=== PATIENT | male | born 1960 | race Caucasian/White ===

== ENCOUNTER 2019-07-30 04:53 | Inpatient (IN) ==
[2019-07-24 13:53] LABS: Appearance,Urine HAZY; Bilirubin,Urine NEG (NEG); Color,Urine AMBER; Culture Indicated,Urine NO; Glucose,Urine (UA) NEGATIVE (NEG); Ketones,Urine NEG (NEG); Leukocyte Esterase,Urine NEG /uL (NEG); Nitrate,Urine NEG (NEG); Protein,Urine NEG (NEG); Specific Gravity,Urine 1.019 (1.000-1.035); Urine Blood NEG mg/dL (<0.03); Urobilinogen,Urine NEG (NEG)
[2019-07-24 14:10] LABS: Estimated Average Glucose(eAG) 126 mg/dL
[2019-07-30] MEDS ORDERED: IPRATROPIUM/ALBUTEROL 3 ML AMPUL.NEB NEB PRN ×2 (05:00→08:56)
[2019-07-30] MEDS ORDERED: SCOPOLAMINE 1 PATCH PATCH TOPICAL PRN (05:00)
[2019-07-30] MEDS ORDERED: PREGABALIN 75 MG CAPSULE PO SCH (06:00)
[2019-07-30] MEDS ORDERED: oxyCODONE 10 MG TAB.ER.12H PO SCH (06:00)
[2019-07-30] MEDS ORDERED: ceFAZolin 2 GM in DEXTROSE 5% IN WATER 50 ML IV SCH (06:00)
[2019-07-30] MEDS ORDERED: CELECOXIB 200 MG CAPSULE PO SCH (06:00)
[2019-07-30] MEDS ORDERED: SUGAMMADEX SODIUM 200 MG/2 ML VIAL IV ONE (07:35)
[2019-07-30] MEDS ORDERED: KETAMINE 100 MG/ML ML IV ONE (07:35)
[2019-07-30] MEDS ORDERED: ROCURONIUM 10 MG/ML ML IV ONE (07:35)
[2019-07-30] MEDS ORDERED: DEXAMETHASONE 10 MG/ML VIAL IV ONE (07:35)
[2019-07-30] MEDS ORDERED: TRANEXAMIC ACID 1,000 MG/10 ML VIAL IV ONE ×2 (07:35→09:07)
[2019-07-30] MEDS ORDERED: MIDAZOLAM 2 MG/2 ML VIAL IV ONE (07:35)
[2019-07-30] MEDS ORDERED: PROPOFOL 200 MG/20 ML VIAL IV ONE (07:35)
[2019-07-30] MEDS ORDERED: LIDOCAINE HCL/PF 100 MG/5 ML SYRINGE IV ONE (07:35)
[2019-07-30] MEDS ORDERED: GLYCOPYRROLATE 0.2 MG/ML VIAL IV ONE (07:35)
[2019-07-30] MEDS ORDERED: ONDANSETRON 4 MG/2 ML VIAL IV ONE (07:35)
[2019-07-30] MEDS ORDERED: fentaNYL 100 MCG/2 ML VIAL IV PRN (08:56)
[2019-07-30] MEDS ORDERED: METHOCARBAMOL 1,000 MG/10 ML VIAL IV PRN (08:56)
[2019-07-30] MEDS ORDERED: ONDANSETRON 4 MG/2 ML VIAL IV PRN ×2 (08:56→09:07)
[2019-07-30] MEDS ORDERED: ACETAMINOPHEN 1,000 MG/100 ML BOTTLE IV ONE (08:56)
[2019-07-30] MEDS ORDERED: LACTATED RINGERS 1,000 ML IV SCH (09:00)
[2019-07-30] MEDS ORDERED: HYDROmorphone 2 MG/ML VIAL IV PRN (09:07)
[2019-07-30] MEDS ORDERED: FLEETS ADULT ENEMA PR PRN (09:07)
[2019-07-30] MEDS ORDERED: BISACODYL 10 MG SUPP.RECT PR PRN (09:07)
[2019-07-30] MEDS ORDERED: POLYETHYLENE GLYCOL 3350 17 GM PACKET PO PRN (09:07)
[2019-07-30] MEDS ORDERED: MAGNESIUM HYDROXIDE 30 ML ORAL.SUSP PO PRN (09:07)
[2019-07-30] MEDS ORDERED: BENZOCAINE/MENTHOL 1 LOZENGE PO PRN (09:07)
--- NOTE | 2019-07-30 09:07 | Brief Operative Note ---
Date of procedure: 07/30/19 Pre-op diagnosis: Left hip severe DJD Post-op diagnosis: same Procedure: Right anterior total hip arthroplasty Grafts/Implants: Yes (Depuy Actis 7 std stem, +1.5 36mm delta head, 54 cup, neutral altrx liner) Anesthesia: spinal, GLMA Findings: severe arthritis Complications: none Surgeon: Jeremiah Degroot Bone Char Kiln Tender: Som Manning Estimated blood loss (cc): 200 Specimens Removed/Pathology: none sent Condition: stable Disposition: PACU
[2019-07-30] MEDS ORDERED: traZODone HCL 100 MG TABLET PO PRN (09:11)
[2019-07-30] MEDS ORDERED: ACYCLOVIR 400 MG TABLET PO PRN (09:11)
--- NOTE | 2019-07-30 09:46 | XRay Report ---
CLINICAL INFORMATION: Left total hip arthroplasty TECHNIQUE: Intraoperative fluoroscopy and spot films. 0.4 minutes fluoroscopy utilized COMPARISON: None. FINDINGS: Intraoperative fluoroscopy was utilized. Spot films demonstrate prosthetic left hip in anatomic alignment IMPRESSION: Intraoperative fluoroscopy and spot films used during left total hip arthroplasty Interpreted and Authenticated by: Siddhartha Bojorquez 07/30/19
--- NOTE | 2019-07-30 09:59 | Operative Note ---
DATE OF OPERATION: 07/30/2019 PREOPERATIVE DIAGNOSIS: Left hip severe osteoarthritis. POSTOPERATIVE DIAGNOSIS: Left hip severe osteoarthritis. PROCEDURE PERFORMED: Left anterior total hip arthroplasty placing a DePuy Actis size 7 standard offset femoral stem; a +1.5, 36 mm delta ceramic head ball; a 54 three-hole [place] cup with a neutral Altrx liner. SURGEON: Jeremiah Degroot M.D. WELT EDGE ROUNDER: Horace Manning PA-C. The PA's assistance was required for the safe and efficient completion of the entire case. This provider's expertise and technical skill were required throughout the case. The PA assisted with preoperative coordination, intraoperative retraction, wound closure, dressing and splint application, as well as postoperative documentation and care coordination. ANESTHESIA: Spinal plus general. DRAINS: None. SPECIMENS: Femoral head which was discarded. BLOOD LOSS: 200 mL. COMPLICATIONS: None. POSTOPERATIVE CONDITION: Stable. INDICATIONS FOR SURGERY: This is a 59-year-old male who has had longstanding, progressive worsening left hip pain. Radiographs showed severe [id number] osteoarthritis with large osteophyte formation. FINDINGS AT SURGERY: As above. Post implantation showed satisfactory component positioning with acceptable leg lengthening. PROCEDURE IN DETAIL: The patient had been seen preoperatively and informed consent had been obtained after discussion of risks and benefits of surgery. Risks including, but not limited to, bleeding, possibly requiring transfusion; infection, possibly requiring implant removal and prolonged IV antibiotics; injury to nerves, blood vessels, and other surrounding structures; anesthetic risks; incomplete or no resolution of symptoms; leg length discrepancy; dislocation; fracture; DVT and pulmonary embolus risks; and the possibility of needing further revision joint surgery. He understood and wished to proceed. Correct operative site was marked and patient received spinal anesthesia. He was then taken to the operating room and LMA general given. The patient was carefully positioned on the fracture table and then the left hip and groin were carefully prepped and draped in normal sterile fashion. Time out was performed verifying patient name, operative site, and plan. Ioban was used to cover all skin surfaces and a standard anterior approach incision was made with a scalpel through skin and subcutaneous tissue. Hemostasis was obtained with Bovie cautery. We continued blunt dissection down onto the tensor fascia and then undermined circumferentially. Irrisept was irrigated and a ring retractor was placed. Tensor fascia was incised in line with the muscle fibers and then careful blunt dissection was taken medial to the muscle belly. Blunt cobra retractors were placed on the superior and inferior neck and then circumflex vessels were coagulated and cut and vastus fascia was split distally. An anterior capsulectomy was performed and capsule releases taken out towards the greater and lesser trochanters. Corkscrew was placed in the femoral head. Prior to this, we did take x-rays for [facility] registration. We then under fluoroscopy using an osteotome identified our neck cut trajectory and then the oscillating tip saw was used to make our osteotomy. The femoral head was removed. The acetabulum was exposed. There was some large overhanging osteophyte which was removed with a rongeur. We then removed labrum, what remained, circumferentially and then soft tissue was removed from the floor of the acetabulum. We then irrigated with Irrisept and then a reamer was used, initially reaming directly medial to the teardrop. We then increased our reamer size and angle until a 53 got some rim ream. We trialed the 53 and did get some press-fit, so we opened a 54 three-hole [place] cup. We irrigated with Irrisept again, after a minute pulse lavaged copiously with saline. The cup was impacted with the [id number] and using JointPoint our positioning appeared to be about 39 degrees of inclination and 30 degrees of anteversion. It did not appear that lessening the anteversion was an option due to lack of coverage anteriorly if we were to do so. We went ahead and removed the impactor. A center hole cover was placed. Osteotome was used to remove anterior inferior osteophyte and then a rongeur was used to remove the fragments. We then opened a 36 neutral Altrx liner. This was carefully aligned and impacted. Tabs were carefully verified to be fully seated. Traction was removed from the leg. It was externally rotated it. We released capsule around the medial neck and posterior and then the leg was extended and adducted. Bovie was used to release capsule out towards the greater trochanter and once we had adequate exposure of the proximal femur, a box osteotome was used to gain canal entry. An awl was used to identify canal trajectory and then a rongeur and rasp were used to lateralize. We sequentially broached up to a size 6. This seated a little below our neck cut. We calcar planed down onto this. A +1.5 standard neck and head were placed. The hip was then reduced. There was some increased tension. X-ray was brought in and using JointPoint it appeared our stem was in a little bit of valgus, and we also appeared to be slightly undersized. The leg lengthening was about 9 mm. Our preoperative templating had him at about 6 mm short. I went ahead and redislocated due to the stem appearing undersized and being in valgus. I used the 6 broach and started using the [id number] to make this a little more varus. This then allowed the stem to seat lower, so I went ahead and went up to a size 7. The 7 I was able to seat about a millimeter below the neck cut, so I re-calcar planed. We opened a 7 standard stem. The femoral canal was irrigated with Irrisept, after a minute pulse lavaged with saline. We then impacted the stem which seated down on our neck cut easily. A +1.5, 36 mm delta head ball was opened. The stem was carefully cleaned and dried and the head ball briskly impacted with the [id number]. We then reduced the hip with similar tension as before. Final fluoro images were taken and saved. JointPoint had us at limb lengthening of about 10 mm. Again, the net limb lengthening compared to the nonoperative side would have placed us at about 4 mm, which we felt was acceptable. We then irrigated the joint with Irrisept, after a minute pulse lavaged with saline. Tensor fascia was closed with two running #1 Vicryl stitches. Ring retractor was removed. Irrisept was irrigated again, after a minute pulse lavaged with saline, and then fat was tacked to fascia with Vicryl. A 2-0 Monocryl was used for subcutaneous and maryan for skin. Xeroform and sterile dressing were applied. The patient was then awakened, extubated, and transferred to recovery in stable condition. MICHELLE:louis Job ID: [id number] Doc ID: [id number] Jeremiah Degroot MD
[2019-07-30] MEDS: MEPERIDINE 25 MG/ML SYRINGE IV PRN ×2 (10:04→10:10)
--- NOTE | 2019-07-30 10:29 | XRay Report ---
CLINICAL INFORMATION: Postsurgical follow-up TECHNIQUE: AP pelvis. AP and lateral left hip COMPARISON: Previous AP pelvis dated 03/08/2016 FINDINGS: Status post left total hip arthroplasty. Normal anatomic alignment demonstrated. No acute fracture. There are skin maryan overlying the left hip. IMPRESSION: Left total hip arthroplasty Interpreted and Authenticated by: Siddhartha Bojorquez 07/30/19
[2019-07-30] MEDS: 0.9 % SODIUM CHLORIDE 1,000 ML IV SCH ×2 (10:37→20:13)
[2019-07-30] MEDS: KETOROLAC 30 MG/ML VIAL IV PRN (13:17)
[2019-07-30] MEDS: oxyCODONE/APAP 5/325MG TABLET PO PRN ×2 (13:52→22:50)
[2019-07-30] MEDS: 0.9 % SODIUM CHLORIDE 10 ML SYRINGE IV SCH ×2 (14:20→20:11)
[2019-07-30] MEDS: ceFAZolin 1 GM VIAL IV SCH ×2 (14:54→22:50)
[2019-07-30] MEDS: ASPIRIN 81 MG TAB.CHEW PO SCH (20:10)
[2019-07-30] MEDS: DOCUSATE SODIUM 100 MG CAPSULE PO SCH (20:10)
[2019-07-30] MEDS ORDERED: SENNOSIDES 1 TABLET PO SCH (21:00)
[2019-07-31] MEDS: oxyCODONE/APAP 5/325MG TABLET PO PRN ×2 (05:14→10:10)
[2019-07-31] MEDS: 0.9 % SODIUM CHLORIDE 10 ML SYRINGE IV SCH ×2 (05:17→05:30)
[2019-07-31] MEDS: 0.9 % SODIUM CHLORIDE 1,000 ML IV SCH (05:47)
[2019-07-31] MEDS: KETOROLAC 30 MG/ML VIAL IV PRN (07:00)
[2019-07-31] MEDS ORDERED: LEVOTHYROXINE 50 MCG TABLET PO SCH (07:30)
--- NOTE | 2019-07-31 07:33 | Discharge Summary ---
Providers - Providers Patient information: Note initiated : 07/31/19 at 7:28 am Service Date, if different from initiated Date: [] Patient: Jason Lewis 59 y/o M admitted on 07/30/19 for Left Total Hip Arthroplasty. Chief Complaint: [] Discharge date: 07/31/19 Hospitalization Hospital Course: Pt was admitted for a L FLORIAN. Pt underwent the procedure on the ayush of admission. Pt was transferred to the floor for IV pain meds, IV abx, and PT. Pt discharged post-op day 1. Will f/u in 2 weeks. Will take ASA for DVT prophylaxis. Discharge diagnosis: L hip OA Exam - Exam Clean and dry: Yes Weight bearing status: as tolerated Ortho Discharge - FLORIAN - Patient Instructions Diet: Regular Diet Activity: activity as tolerated Total Hip Protocol: Follow activity instructions as provided by Physical Therapy. Dressing Care: May shower in 2 days - Follow Up Plan Disposition: Home, Self-Care Prognosis: Good Rehab Potential: Good Overall status at discharge: patient is progressing back to baseline - Orders For Discharge Prescriptions: Aspirin 81 mg PO BID #60 tab.chew Transmission Status: Pending to [facility] #[id number] Hydrocodone/APAP 7.5/325Mg [[place] 7.5-325Mg] 1 - 2 tab PO Q6HP PRN #80 tab PRN Reason: Pain Prescription Printed Pending Studies Resuscitation Status Full Code Diet Consistent Carbohydrate Diet Start SunJul 30 09 Aspirin (Aspirin) 81 mg PO BID [facility] Last Admin: 07/30/19 20:10 Dose: 81 mg Documented by: DEBBY Docusate Sodium (Colace) 100 mg PO BID [facility] [place] Last Admin: 07/30/19 20:10 Dose: 100 mg Documented by: DEBBY Sodium Chloride (Sodium Chloride 0.9%) 1,000 mls @ 100 mls/hr IV .Q10H [facility] [place] Last Infusion: 07/31/19 05:50 Dose: 0 mls/hr Documented by: Admin: 07/31/19 05:47 Dose: Not Given Documented by: Admin: 07/30/19 20:13 Dose: 100 mls/hr Documented by: Infusion: 07/30/19 20:13 Dose: 100 mls/hr Documented by: Admin: 07/30/19 10:37 Dose: 100 mls/hr Documented by: [email or web address] Ketorolac Tromethamine (Toradol) 30 mg IV Q6HP PRN PRN Reason: Pain Stop: 08/01/19 09:10 Last Admin: 07/31/19 07:00 Dose: 30 mg Documented by: [email or web address] Admin: 07/30/19 13:17 Dose: 30 mg Documented by: [email or web address] Levothyroxine Sodium (Synthroid) 50 mcg PO QAMAC [facility] [place] Last Admin: 07/31/19 07:00 Dose: 50 mcg Documented by: [email or web address] Oxycodone/Acetaminophen (Percocet 5-325 Mg) 0 tab PO Q4HP PRN PRN Reason: PAIN LEVEL 3-6 Last Admin: 07/31/19 05:14 Dose: 1 tab Documented by: Admin: 07/30/19 22:50 Dose: 1 tab Documented by: Admin: 07/30/19 13:52 Dose: 1 tab Documented by: [email or web address] Senna (Senokot) 2 tab PO HS [facility] Last Admin: 07/30/19 20:09 Dose: 2 tab Documented by: DEBBY Sodium Chloride (Saline Flush) 10 ml IV Q8 [facility] [place] Last Admin: 07/31/19 05:30 Dose: Not Given Documented by: Admin: 07/30/19 20:11 Dose: Not Given Documented by: Admin: 07/30/19 14:20 Dose: Not Given Documented by: [email or web address] Trazodone HCl (Desyrel) 100 mg PO QHS PRN PRN Reason: Sleep Last Admin: 07/30/19 22:50 Dose: 100 mg Documented by: DEBBY Shift Summary 07/31/19 03:49 Shift Summary by Fam Romero Patient is alert and oriented times four. had left total hip arthroplasty done. dressing to the hip clean, dry and intact. medicated pain with one tab of percocet with good effect. Patient is up with one assist with a walker and gaitbelt. Ambulated in hallway. AV boots on. voiding with good amount. incontinent sometimes. Due to numbness in the pelvic areas. IV to the left forearm infusing normal saline @ 100mls/hr. Ice pack to the left hip. Stable vital signs. Slept most of the night. Pleasant and cooperative. Initialized on 07/31/19 03:49 - END OF NOTE
[2019-07-31] MEDS: DOCUSATE SODIUM 100 MG CAPSULE PO SCH (08:50)
[2019-07-31] MEDS: ASPIRIN 81 MG TAB.CHEW PO SCH (08:50)
[2019-07-31] MEDS ORDERED: buPROPion 150 MG TAB.XL.24H PO SCH (09:00)
[2019-07-31] MEDS ORDERED: HYDROCHLOROTHIAZIDE 25 MG TABLET PO SCH (09:00)
[2019-07-31] MEDS ORDERED: ALLOPURINOL 300 MG TABLET PO SCH (09:00)
[2019-07-31] MEDS ORDERED: BENZOYL PEROX TOPICAL SCH (09:00)
[2019-07-31] MEDS ORDERED: DOXYCYCLINE HYCLATE 100 MG TABLET.ORL PO SCH (09:00)
[2019-07-31] MEDS ORDERED: FLUTICASONE PROPIONATE SPRAY.NAS NS SCH (09:00)
[2019-07-31] MEDS ORDERED: CLINDAMYCIN PHOS TOPICAL SCH (09:00)
== END 2019-07-31 10:45 | disposition home or self-care (01) | DRG 470 ==
LOC: MEDSUR 04:53
PROVIDERS: ADMIT Orthopaedic Surgery; ATTEND Orthopaedic Surgery

== ENCOUNTER 2022-04-07 17:39 | Inpatient (IN) ==
[2022-04-07 18:29] LABS: POC Calcium, Ionized 1.04 (1.16-1.32); POC Potassium 3.4 (3.3-5.1)
[2022-04-07 18:45] LABS: Basophils # (Auto) 0.05 K/mcL (0.00-0.30); Basophils % (Auto) 0.3 % (0.0-2.0); Eosinophils # (Auto) 0.01 K/mcL (0.00-0.70); Eosinophils % (Auto) 0.1 % (0.0-7.0); Hematocrit 41.9 % (40.1-51.0); Hemoglobin 13.9 g/dL (13.7-17.5); Lymphocytes # (Auto) 1.17 K/mcL (1.50-4.80); Lymphocytes % (Auto) 6.8 % (15.5-49.0); Mean Cell Volume 84.1 fL (80.0-100.0); Mean Corpuscular HGB Conc 33.2 g/dL (31.0-36.0); Monocytes # (Auto) 1.49 K/mcL (0.10-0.90); Monocytes % (Auto) 8.6 % (1.0-12.0); Neutrophils % (Auto) 83.7 % (38.0-78.0); Platelet Count 232 K/mcL (140-440); RBC 4.98 M/mcL (4.63-6.08); Red Cell Distribution Width 16.4 % (11.5-14.5); WBC 17.2 K/mcL (4.5-11.0)
--- NOTE | 2022-04-07 18:51 | Emergency Department Note ---
HPI General Chief complaint: Urogenital-Male Stated complaint: urinary retention/air out penis Time Seen by Provider: 04/07/22 17:42 Source: patient and family (Significant other) Mode of arrival: ambulatory Limitations: no limitations History of Present Illness HPI Narrative: Narrative: 62-year-old male presents emergency department complaining of air coming out of his penis. States that 3 days ago he was unable to urinate although he was able to dribble. Feels as though his urine is building up in his bladder. States he has a burnt orange color. States he is seeing chunks come out when he does urinate. Sometimes he has air bubbles come out and sometimes he has a "penis fart". Patient also complains of stomach issues which have been present for really long time. While trying to ascertain what this was the patient described having a wrap surgery on his stomach and then having what sounds like a hiatal hernia surgery. Patient also describes atypical bowel movements. States that he will have no bowel movement for 2 to 3 days and then have a painful bowel movement. Described the stool sometimes being spaghetti like in shape. Also describes it as "sheets". Patient describes his prostate being opened which may represent a TURP by Dr. Erickson 8 years ago. This is unconfirmed. Patient rates the discomfort as a 2 on a 0-to-10 scale. States it waxes and wanes and is worse when he urinates when the pain will go up to an 8. States he has bubbles in the urine which she can hear and see/feel. States no prior similar. States nothing makes it better or worse. States the pain radiates to his back and then up to his chest and into his shoulders then arms and finally hands and fingers. Describes the pain as sharp. Patient also states he has rhinorrhea with his bowel movements. Old chart shows colonoscopy 2018. Related Data Home Medications Medication Instructions Recorded Confirmed lansoprazole 30 mg capsule,delayed 30 mg PO BID cap 05/30/21 04/07/22 release allopurinol 300 mg tablet 300 mg PO QAM 08/26/21 04/07/22 [id number] 200 mcg-lycop 1 tab PO QAM 08/26/21 04/07/22 175 mcg-lutei 250 mcg-herb 178 tablet (Cristofer Multivitamin For Men) Previous Rx's Medication Instructions Recorded CPAP unit and supplies #1 ea 04/01/20 sildenafil 100 mg tablet (Viagra) 100 mg PO DIRECTED #6 tab 04/25/21 bupropion HCl 150 mg 24 hr tablet, 150 mg PO QAM #90 tab 10/24/21 extended release hydrochlorothiazide 25 mg tablet 25 mg PO QAM #90 tab 10/24/21 metformin 500 mg tablet 500 mg PO QAM #90 tab 01/02/22 levothyroxine 50 mcg tablet 50 mcg PO QAM #90 tab 01/23/22 (Synthroid) meloxicam 15 mg tablet (Mobic) 15 mg PO QAM #90 tab 01/23/22 doxycycline hyclate 100 mg tablet 100 mg PO QAM #30 tab 01/31/22 omega-3 acid ethyl esters 1 gram 2 cap PO BID #120 cap 02/20/22 capsule trazodone 100 mg tablet 100 mg PO QHS #30 tab 03/17/22 Allergies Allergy/AdvReac Type Severity Reaction Status Date / Time Nefazodone [NEFAZODONE] AdvReac Severe JOINTS Verified 03/24/22 14:28 FROZE, HEAD SWELLING Varenicline [From Chantix] AdvReac Intermediate Palpitations, Verified 03/24/22 14:28 night sweats Review of Systems ROS ROS Narrative: Narrative: All systems ED: reviewed and negative except as stated. Constitutional: Denies fever Eyes: Denies eye discharge ENT ED: Denies epistaxis Cardiovascular: Denies chest pain Respiratory: Denies shortness of breath Gastrointestinal: Reports abdominal pain Genitourinary: Reports dysuria, hematuria and other (Has gas come out when urin ating and urinates "chunks") Musculoskeletal: Denies back pain Integumentary: Denies rash PFSH Narrative Patient History Narrative: Narrative: Medical/Surgical/Family History All Active Problems (Updated 04/08/22 @ 04:44 by Jonnathan Richmond MD) Fistula of large intestine (Acute) Laceration of right middle finger (Acute) Initial Medicare annual wellness visit (Acute) Diverticulosis (Acute) Leg length discrepancy (Acute) Tubulovillous adenoma of colon (Chronic) GERD (gastroesophageal reflux disease) (Chronic) Atrophy of pancreas (Acute) Constipation (Chronic) Abdominal ascites (Acute) Palpitations (Acute) Encounter for Health Maintenance Examination in Adult (Acute) Acute bronchitis (Acute) Leukoplakia of oral cavity (Acute) History of colonoscopy (Chronic 12/28/17) S/P epidural steroid injection (Chronic 07/11/17) History of parathyroid surgery (Chronic 09/27/15) History of hernia surgery (Chronic) History of arthroscopy of knee (Chronic) History of vasectomy (Chronic) History of laparoscopy (Chronic) History of tonsillectomy (Chronic) History of rotator cuff surgery (Chronic) Leukocytosis (Chronic) Erectile dysfunction (Chronic) Depression (Chronic) IBS (irritable bowel syndrome) (Chronic) Allergic rhinitis (Chronic) Hip pain, right (Chronic) Lower back pain (Chronic) Herpes genitalis (Chronic) Malignant basal cell neoplasm of skin (Chronic) Fatigue (Chronic) Plantar fasciitis (Chronic) Superficial injury of hand without infection (Chronic) Diverticulosis (Chronic) Other diseases of pharynx (Chronic) Arthralgia (Chronic) Myalgia (Chronic) Dyspnea (Chronic) Gout (Chronic) Nodular prostate with urinary obstruction (Chronic) Hypercalcemia (Chronic) Back pain, chronic (Chronic) Chronic left hip pain (Chronic) Neoplasm of uncertain behavior (Chronic) Sebaceous cyst (Chronic) Wrist pain, right (Chronic) Rotator cuff tear, left (Chronic) Hyperparathyroidism (Chronic) Parathyroid disorder (Chronic) Pain in right shoulder (Chronic) BPH with obstruction/lower urinary tract symptoms (Chronic) DDD (degenerative disc disease), lumbar (Chronic) Trochanteric bursitis of left hip (Chronic) Umbilical hernia (Chronic) Hyperlipidemia (Chronic) Hypothyroidism (Chronic) Diverticulosis of colon (without mention of hemorrhage) (Chronic) Internal hemorrhoids (Chronic) Colonic polyp (Chronic) Hiatal hernia with gastroesophageal reflux (Chronic) Injury of left rotator cuff (Chronic) Sleep apnea, obstructive (Chronic) Polycythemia, secondary (Chronic) Hypertension (Chronic) Peripheral edema (Chronic) Medical History (Updated 04/08/22 @ 04:44 by Jonnathan Richmond MD) Allergic rhinitis Arthralgia Back pain, chronic BPH with obstruction/lower urinary tract symptoms Chronic left hip pain Colonic polyp Constipation DDD (degenerative disc disease), lumbar with myelopathy Depression Diverticulosis Diverticulosis of colon (without mention of hemorrhage) Dyspnea Erectile dysfunction Fatigue GERD (gastroesophageal reflux disease) Gout Herpes genitalis Hiatal hernia with gastroesophageal reflux Hip pain, right Hypercalcemia Hyperlipidemia Hyperparathyroidism Hypertension Hypothyroidism IBS (irritable bowel syndrome) Injury of left rotator cuff Internal hemorrhoids Leukocytosis Lower back pain Malignant basal cell neoplasm of skin Myalgia Neoplasm of uncertain behavior of skin Nodular prostate with urinary obstruction Other diseases of pharynx Pain in right shoulder Parathyroid disorder Peripheral edema Plantar fasciitis Polycythemia, secondary Rotator cuff tear, left Sebaceous cyst Sleep apnea, obstructive Superficial injury of hand without infection Trochanteric bursitis of left hip Tubulovillous adenoma of colon Umbilical hernia Wrist pain, right Surgical History History of arthroscopy of knee History of colonoscopy (12/28/17) History of hernia surgery 07/11/17 & 03/18/18 History of laparoscopy History of parathyroid surgery (09/27/15) left central neck exploration with removal of left inferior parathyroid adenoma, Dr Cody History of rotator cuff surgery left 03/19, rt 10/22 History of tonsillectomy History of vasectomy S/P epidural steroid injection (07/11/17) Dr Woods Family History Other No pertinent family history Social History Smoking Status: Former smoker Alcohol Intake Frequency: holiday/special occasion only Substance Use: does not use Exam Narrative Narrative: Narrative: General Limitations: no limitations General appearance: Present alert, anxious and in distress (Mild) Head Head: Present atraumatic, normocephalic and other (Full head of hair) Eye Eye: Present normal appearance Neck Neck: Present normal inspection and trachea midline Chest Chest: Absent tenderness Respiratory Respiratory: Present normal lung sounds bilaterally; Absent respiratory distress Cardiovascular Cardiovascular: Present normal rhythm and tachycardia Adbominal Abdominal: Present soft and tenderness (Left upper quadrant primarily. minimal suprapubic); Absent guarding or rebound Extremities Extremities: Present normal inspection and other (Well-healed finger partial amputation) Back Back: Present normal inspection; Absent tenderness Neurological Neurological: Present alert and oriented X3 Psychiatric Psychiatric: Present normal affect and normal mood Skin Skin: Present warm (WNL) and dry Course Consultations Consultation #1: Discussed with Dr. Cj Ramirez the general surgeon. He requested the patient be admitted to the hospital. He placed on Flagyl 500 mg every 6 and meropenem. Requested Pyridium. Requested Lynch catheter. Requested clear fluids in addition to IV fluids. He will see the patient in the hospital. Time: 21:24 Vital Signs Vital signs: Vital Signs Temperature 98.4 F 04/07/22 17:53 Pulse Rate 122 H 04/07/22 17:53 Respiratory Rate 16 04/07/22 17:53 Blood Pressure 122/82 04/07/22 17:53 Pulse Oximetry (%) 94 04/07/22 17:53 Temperature 99.5 F H 04/08/22 04:00 Pulse Rate 100 H 04/08/22 04:00 Respiratory Rate 16 04/08/22 04:00 Blood Pressure 117/76 04/08/22 04:00 Pulse Oximetry (%) 94 04/08/22 04:00 [facility] MDM Narrative Medical decision making narrative: Narrative: 62-year-old male comes planing of urinating with air coming out at the same time. Differential diagnosis includes enterovesicular fistula, gas-forming organism in the bladder, status post instrumentation of the bladder, other. Will obtain abdominal pelvic CT scan with IV contrast and rectal contrast (per suggestion of radiologist Dr. Kinsey) to evaluate for enterovesicular fistula. Patient has elevated white count and tachycardia along with likely urinary tract infection (leukocytes in urine dip) so meets sepsis criteria. Patient will receive Zosyn plus Vanco for initial sepsis treatment. Lactic acid level is pending. Blood cultures have been ordered and the patient is being bolused the first liter of normal saline. 1927; I spoke to the daughter [phone]. She is an ICU nurse. I have updated her about her father sepsis and the pending CT scan looking for fistula. 2013: Lactic acid level was normal at 1.4. Patient has sepsis but patient does not have severe sepsis. There is no elevated lactic acid level and there is no new organ dysfunction due to the infection. Patient is not hypotensive. Patient does NOT require IV fluid bolus of 30 mL/kg. CT scan and pelvis interpreted by Dr. 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 There is no signs of an abscess. There is no free air in the abdomen though there is free air in the bladder. I discussed the case with Dr. Cj Ramirez the general surgeon. He requested that I admit the patient to the hospital on his service. Patient should be allowed a clear liquid diet and started on meropenem and Flagyl. Lab Data Result diagrams: 04/07/22 18:15 Labs: Lab Results 04/07/22 04/07/22 04/07/22 Range/Units 18:05 18:15 18:15 WBC 17.2 H (4.5-11.0) K/mcL RBC 4.98 (4.63-6.08) M/mcL Hgb 13.9 (13.7-17.5) g/dL Hct 41.9 (40.1-51.0) % POC Hct (41-55) MCV 84.1 (80.0-100.0) fL MCH 27.9 (26.0-34.0) pg MCHC 33.2 (31.0-36.0) g/dL RDW 16.4 H (11.5-14.5) % Plt Count 232 (140-440) K/mcL MPV 9.0 (7.4-10.4) fL Immature Gran % (Auto) 0.5 (0.0-0.5) % Neut % (Auto) 83.7 H (38.0-78.0) % Lymph % (Auto) 6.8 L (15.5-49.0) % [place] % (Auto) 8.6 (1.0-12.0) % Eos % (Auto) 0.1 (0.0-7.0) % Baso % (Auto) 0.3 (0.0-2.0) % Lymph # (Auto) 1.17 L (1.50-4.80) K/mcL [place] # (Auto) 1.49 H (0.10-0.90) K/mcL Eos # (Auto) 0.01 (0.00-0.70) K/mcL Baso # (Auto) 0.05 (0.00-0.30) K/mcL Immature Gran # 0.09 H (0.00-0.05) K/mcl Absolute Neutrophils 14.52 H (1.80-8.00) K/mcL VBG Lactic Acid (0.5-2.0) mmol/L POC Sodium (133-145) POC Potassium (3.3-5.1) POC Chloride (96-108) POC Total CO2 (22-30) POC BUN (6-20) POC Creatinine (0.6-1.2) POC Glucose (70-105) POC WB Ioniz Calcium (1.16-1.32) Total Bilirubin 0.8 (0.1-1.0) mg/dL Direct Bilirubin 0.2 (<0.3) mg/dL AST 22 (<40) U/L ALT 23 (<40) U/L Alkaline Phosphatase 104 (39-117) U/L Total Protein 7.2 (5.9-8.4) gm/dL Albumin 3.8 (3.2-5.2) gm/dL Globulin 3.4 (2.2-3.7) gm/dL Urine Color Anna Urine Appearance Cloudy A (Clear) Urine pH 6.0 (5.0-9.0) Ur Specific [place] 1.026 (1.000-1.035) Urine Protein 100 A (Negative) mg/dL Urine Glucose (UA) Negative (Negative) mg/dL Urine Ketones 20 A (Negative) mg/dL Urine Occult Blood 0.20 (Negative) mg/dL Urine Nitrate Negative (Negative) Urine Bilirubin Negative (Negative) mg/dL Urine Urobilinogen 4.0 A mg/dL Ur Leukocyte Esterase 250 A (Negative) /uL Urine RBC 115 H (0-3) /hpf Urine WBC > 182 H (0-4) /hpf Ur Squamous Epith Cells 3 (0-4) /hpf Ur Transition Epith Cell 2 (0-2) /hpf Urine Bacteria None (0) /hpf Hyaline Casts 7 H (0-2) /lph Urine Mucus Many A (None) /hpf Ur Culture Indicated? yes 04/07/22 04/07/22 Range/Units 18:24 18:51 WBC (4.5-11.0) K/mcL RBC (4.63-6.08) M/mcL Hgb (13.7-17.5) g/dL Hct (40.1-51.0) % POC Hct 42.0 (41-55) MCV (80.0-100.0) fL MCH (26.0-34.0) pg MCHC (31.0-36.0) g/dL RDW (11.5-14.5) % Plt Count (140-440) K/mcL MPV (7.4-10.4) fL Immature Gran % (Auto) (0.0-0.5) % Neut % (Auto) (38.0-78.0) % Lymph % (Auto) (15.5-49.0) % [place] % (Auto) (1.0-12.0) % Eos % (Auto) (0.0-7.0) % Baso % (Auto) (0.0-2.0) % Lymph # (Auto) (1.50-4.80) K/mcL [place] # (Auto) (0.10-0.90) K/mcL Eos # (Auto) (0.00-0.70) K/mcL Baso # (Auto) (0.00-0.30) K/mcL Immature Gran # (0.00-0.05) K/mcl Absolute Neutrophils (1.80-8.00) K/mcL VBG Lactic Acid 1.4 (0.5-2.0) mmol/L POC Sodium 133 (133-145) POC Potassium 3.4 (3.3-5.1) POC Chloride 95 L (96-108) POC Total CO2 25.0 (22-30) POC BUN 19 (6-20) POC Creatinine 1.0 (0.6-1.2) POC Glucose 106 H (70-105) POC WB Ioniz Calcium 1.04 L (1.16-1.32) Total Bilirubin (0.1-1.0) mg/dL Direct Bilirubin (<0.3) mg/dL AST (<40) U/L ALT (<40) U/L Alkaline Phosphatase (39-117) U/L Total Protein (5.9-8.4) gm/dL Albumin (3.2-5.2) gm/dL Globulin (2.2-3.7) gm/dL Urine Color Urine Appearance (Clear) Urine pH (5.0-9.0) Ur Specific [place] (1.000-1.035) Urine Protein (Negative) mg/dL Urine Glucose (UA) (Negative) mg/dL Urine Ketones (Negative) mg/dL Urine Occult Blood (Negative) mg/dL Urine Nitrate (Negative) Urine Bilirubin (Negative) mg/dL Urine Urobilinogen mg/dL Ur Leukocyte Esterase (Negative) /uL Urine RBC (0-3) /hpf Urine WBC (0-4) /hpf Ur Squamous Epith Cells (0-4) /hpf Ur Transition Epith Cell (0-2) /hpf Urine Bacteria (0) /hpf Hyaline Casts (0-2) /lph Urine Mucus (None) /hpf Ur Culture Indicated? Discharge Plan Patient/Caregiver Discharge Instructions Pt seen by [facility]/PA only: No Clinical Impression: Fistula of large intestine Activity: as instructed Patient Disposition: Xfer As Inpt ([facility]) Condition: Fair Discharge Date/Time: 04/07/22 22:26 Discharge Comment: Stretcher to Rm. [phone]
[2022-04-07] MEDS ORDERED: PIPERACILLIN SODIUM/TAZOBACTAM 3.375 GM in DEXTROSE 5% IN WATER 50 ML IV ONE (18:59)
[2022-04-07] MEDS ORDERED: VANCOMYCIN 1,000 MG in 0.9 % SODIUM CHLORIDE 250 ML IV ONE (19:00)
[2022-04-07] MEDS ORDERED: 0.9 % SODIUM CHLORIDE 1,000 ML IV ONE (19:06)
[2022-04-07 19:12] LABS: ALT/SGPT 23 U/L (<40); AST/SGOT 22 U/L (<40); Albumin 3.8 gm/dL (3.2-5.2); Alkaline Phosphatase 104 U/L (39-117); Bilirubin,Direct 0.2 mg/dL (<0.3); Bilirubin,Total 0.8 mg/dL (0.1-1.0); Globulin 3.4 gm/dL (2.2-3.7)
[2022-04-07 19:20] LABS: Appearance,Urine CLOUDY (Clear); Bilirubin,Urine Negative (Negative); Color,Urine AMBER; Culture Indicated,Urine yes; Glucose,Urine (UA) Negative (Negative); Ketones,Urine 20 mg/dL (Negative); Leukocyte Esterase,Urine 250 /uL (Negative); Mucus,Urine MANY /hpf; Nitrate,Urine Negative (Negative); Protein,Urine 100 mg/dL (Negative); Specific Gravity,Urine 1.026 (1.000-1.035); Urine Hyaline Cast 7 /lph (0-2); Urine RBC 115 /hpf (0-3); Urine Squamous Epithelial Cell 3 /hpf (0-4); Urine Transitional Epi Cells 2 /hpf (0-2); Urine WBC > 182 /hpf (0-4)
[2022-04-07] MEDS ORDERED: PHENAZOPYRIDINE 200 MG TABLET PO ONE (21:13)
[2022-04-07] MEDS ORDERED: MEROPENEM 0.5 GM in 0.9 % SODIUM CHLORIDE 50 ML IV SCH (21:30)
[2022-04-07] MEDS: 0.9 % SODIUM CHLORIDE 1,000 ML IV SCH (23:13)
[2022-04-07] MEDS: metroNIDAZOLE 500 MG in PREMIX 1 BAG IV SCH (23:14)
[2022-04-07] MEDS ORDERED: traZODone HCL 50 MG TABLET ONE (23:18)
[2022-04-07] MEDS ORDERED: metroNIDAZOLE 500 MG/100 ML BAG IV ONE (23:19)
[2022-04-07] MEDS: traZODone HCL 100 MG TABLET PO SCH (23:28)
[2022-04-08] MEDS: MEROPENEM 2 GM in 0.9 % SODIUM CHLORIDE 50 ML IV SCH ×2 (01:11→11:22)
[2022-04-08] MEDS: metroNIDAZOLE 500 MG in PREMIX 1 BAG IV SCH ×5 (05:46→18:34)
[2022-04-08] MEDS ORDERED: metroNIDAZOLE 500 MG/100 ML BAG IV ONE (05:53)
[2022-04-08 06:12] LABS: Basophils # (Auto) 0.02 K/mcL (0.00-0.30); Basophils % (Auto) 0.2 % (0.0-2.0); Eosinophils # (Auto) 0 K/mcL (0.00-0.70); Eosinophils % (Auto) 0 % (0.0-7.0); Hematocrit 39.5 % (40.1-51.0); Hemoglobin 12.8 g/dL (13.7-17.5); Lymphocytes # (Auto) 0.81 K/mcL (1.50-4.80); Lymphocytes % (Auto) 9.2 % (15.5-49.0); Mean Cell Volume 84.6 fL (80.0-100.0); Mean Corpuscular HGB Conc 32.4 g/dL (31.0-36.0); Mean Platelet Volume 8.9 fL (7.4-10.4); Monocytes # (Auto) 0.78 K/mcL (0.10-0.90); Monocytes % (Auto) 8.9 % (1.0-12.0); Neutrophils % (Auto) 80.9 % (38.0-78.0); Platelet Count 200 K/mcL (140-440); RBC 4.67 M/mcL (4.63-6.08); Red Cell Distribution Width 16.2 % (11.5-14.5); WBC 8.8 K/mcL (4.5-11.0)
[2022-04-08 06:24] LABS: INR 1.1 (0.9-1.1); Prothrombin Time 15.1 sec (11.9-14.5)
[2022-04-08 06:42] LABS: ALT/SGPT 20 U/L (<40); AST/SGOT 18 U/L (<40); Albumin 3.1 gm/dL (3.2-5.2); Alkaline Phosphatase 80 U/L (39-117); Bilirubin,Direct < 0.2 mg/dL (0-0.3); Bilirubin,Total 0.6 mg/dL (0.1-1.0); Blood Urea Nitrogen 13 mg/dL (8-23); Calcium 8.7 mg/dL (8.6-10.4); Carbon Dioxide 27 mmol/L (22-30); Chloride 96 mmol/L (96-108); Globulin 3.2 gm/dL (2.2-3.7); Glomerular Filtration Rate 90; Glucose 97 mg/dL (70-105); Lactate Dehydrogenase 128 U/L (135-225); Phosphorous 2.9 mg/dL (2.5-4.5); Triglycerides 101 mg/dL (<150); Uric Acid 3.9 mg/dL (2.5-8.0)
[2022-04-08] MEDS ORDERED: HYDROmorphone 1 MG/ML SYRINGE ONE (07:25)
[2022-04-08] MEDS: HYDROcodone/APAP 10/325MG TABLET PO PRN ×2 (07:49→17:14)
[2022-04-08] MEDS: ACETAMINOPHEN 1,000 MG/100 ML BAG IV SCH ×3 (07:49→17:35)
[2022-04-08] MEDS: PANTOPRAZOLE 40 MG TABLET PO SCH ×2 (07:59→16:43)
[2022-04-08] MEDS: LEVOTHYROXINE 50 MCG TABLET PO SCH (07:59)
[2022-04-08] MEDS: ONDANSETRON 4 MG/2 ML VIAL IV PRN (07:59)
[2022-04-08] MEDS: buPROPion 150 MG TAB.XL.24H PO SCH (07:59)
[2022-04-08] MEDS: metFORMIN 500 MG TABLET PO SCH (07:59)
--- NOTE | 2022-04-08 08:15 | Cat Scan Report ---
History: passing gas and solid tissue within the bladder TECHNIQUE: Rectal catheter was inserted and two and 40 cc of Gastroview was injected rectally. Patient also received 100 mL Isovue intravenously. Patient was scanned during the portal venous phase from the diaphragm to the symphysis pubis. Delayed excretory phase images of the pelvis were acquired. Sagittal and coronal reformats were created. The radiation exposure was limited using dose reduction technology. FINDINGS: There are linear bands of scar or discoid atelectasis in the left lung base. A small hiatus hernia is present. A 3.3 cm simple cyst is present in segment two of the left lobe of liver. There is moderate generalized fatty infiltration of the liver. There is no evidence of a liver mass. The spleen is normal in size and homogeneous. The gallbladder is normal with no calcified stones or thickening of the wall. The bile ducts are nondilated. No abnormality seen in the pancreas. The adrenals are normal. There is an exophytic 2 cm cyst located laterally in the midportion of the right kidney. Posteriorly in the lower third there is a 6 mm cortical cyst. No solid mass, calculus or hydronephrosis are present in either kidney. The distal abdominal aorta is ectatic and measures 2.5 x 2.8 cm. The iliac arteries are normal in caliber containing scattered plaques. The bladder is incompletely distended. There is generalized thickening of the wall. There is asymmetric masslike thickening of the left side of the bladder, contiguous with inflamed sigmoid colon. There is a moderate-sized bubble of gas within the lumen of the bladder. Numerous diverticula are present in the sigmoid colon. The wall of the sigmoid is thickened and there is mild stranding of the adjacent fat. There is a fistula connecting the inflamed sigmoid with the bladder. No pelvic abscess or ascites are present. There are no abnormally enlarged lymph nodes. Scattered diverticula are present in the descending colon but there is no thickening of the wall. Proximal large bowel is normal. The small intestine is normal. The appendix is noninflamed. There is arthritis at several levels in the lumbar spine. IMPRESSION: Diverticulitis in the sigmoid colon with a fistula connecting the sigmoid with the adjacent left side of the bladder. Thickened bladder wall adjacent to the fistula. This is probably an inflammatory response. However, underlying neoplasm cannot be excluded. Dr. Richmond was called with the report Interpreted and Authenticated by: Humberto Kinsey 04/08/22
--- NOTE | 2022-04-08 08:36 | XRay Report ---
HISTORY: Preop to repair fistula between colon and bladder FINDINGS: The lungs are clear. The heart size is upper limits of normal but magnified by portable technique. There is no congestive heart failure or pleural effusion. There are clips at the left thoracic inlet and patient has a left shoulder prosthesis. The prior CT done on 06/02/21 revealed emphysema in both upper lobes. IMPRESSION: No acute abnormality Interpreted and Authenticated by: Humberto Kinsey 04/08/22
[2022-04-08] MEDS ORDERED: PHENAZOPYRIDINE 200 MG TABLET PO SCH (09:00)
[2022-04-08] MEDS ORDERED: DOCUSATE SODIUM 100 MG CAPSULE PO SCH (09:00)
[2022-04-08] MEDS: 0.9 % SODIUM CHLORIDE 1,000 ML IV SCH ×2 (11:42→14:24)
--- NOTE | 2022-04-08 12:55 | General Surg History&Physical ---
HPI History of Present Illness Patient information: Note initiated : 04/08/22 at 12:42 pm Service Date, if different from initiated Date: [] Patient: Jason Lewis 62 y/o M admitted on 04/07/22 for Urogenital Male. Chief Complaint: [] Chief complaint: Pneumaturia, dysuria, fecaluria History of present illness: Mr. Lewis is a 62 year old M admitted through the emergency room with complaint of 2-week history of passage of air and fecal matter through his penis with associated suprapubic pain and pain in the left flank. He gives a history of having long-term history of anorexia with tenderness in the left lower quadrant extending up into the left flank. He is noted increased fecal matter in his urine and more severe pain. Over the past few months he has had symptoms of constipation with decrease in size of stools and black stools. When seen in the emergency room he was noted to have hypogastric and left lower quadrant tenderness. He was febrile and had leukocytosis. Patient is felt to have colovesical fistula and is admitted for treatment prior to operative therapy. Constitutional Constitutional: Present anorexia, chills, malaise, weakness and weight loss; Absent increased appetite Cardiovascular Cardiovascular: Absent chest pain with activity, dyspnea, dyspnea on exertion, orthopnea, palpatations or paroxysmal nocturnal dyspnea Respiratory Respiratory: Absent wheezing, snoring, pain on inspirtation, chest congestion or excessive phlegm production Gastrointestinal Gastrointestinal: Present abdominal pain, belching, bloating, change in bowel habits, change in stool character, cramping, diarrhea, dyspepsia, dysphagia, early satiety, fecal incontinence, heartburn, loose stools, nausea and vomiting; Absent constipation Genitourinary Genitourinary: change in urinary stream, difficulty urinating, dysuria, flank pain, nocturia, penile discharge, testicular mass, testicular pain, urinary frequency, urinary hesitancy, urinary incontinence and urinary urgency Musculoskeletal Musculoskeletal: Present arthralgias and myalgias; Absent abnormal gait, joint swelling, muscle cramps, neck pain or numbness Integumentary Integumentary: Absent erythema, new lesions, photosensitivity, rash, swelling or unusual bruising Neurological Neurological: Present confusion, dizziness and sensory deficit; Absent abnormal gait, abnormal hearing, abnormal speech, behavioral changes, burning sensations, convulsions, focal weakness, memory loss, numbness, paresthesias, syncope or tremor(s) Psychiatric Psychiatric: Present abnormal sleep pattern, behavioral changes and change in appetite; Absent depression, hallucinations, irritability, memory loss, panic attacks or visual hallucinations Hematologic/Lymphatic Hematologic/Lymphatic: Absent easy bleeding, easy bruising or lymphadenopathy Allergic/Immunologic Allergic/Immunologic: Absent tongue swelling, throat swelling, uticaria, wheezing or lip swelling PFSH PFSH All Active Problems (Updated 04/08/22 @ 12:53 by Uziel Ramirez MD) Acute diverticulitis (Acute) Colovesical fistula (Acute) Fistula of large intestine (Acute) Laceration of right middle finger (Acute) Initial Medicare annual wellness visit (Acute) Diverticulosis (Acute) Leg length discrepancy (Acute) Tubulovillous adenoma of colon (Chronic) GERD (gastroesophageal reflux disease) (Chronic) Atrophy of pancreas (Acute) Constipation (Chronic) Abdominal ascites (Acute) Palpitations (Acute) Encounter for Health Maintenance Examination in Adult (Acute) Acute bronchitis (Acute) Leukoplakia of oral cavity (Acute) History of colonoscopy (Chronic 12/28/17) S/P epidural steroid injection (Chronic 07/11/17) History of parathyroid surgery (Chronic 09/27/15) History of hernia surgery (Chronic) History of arthroscopy of knee (Chronic) History of vasectomy (Chronic) History of laparoscopy (Chronic) History of tonsillectomy (Chronic) History of rotator cuff surgery (Chronic) Leukocytosis (Chronic) Erectile dysfunction (Chronic) Depression (Chronic) IBS (irritable bowel syndrome) (Chronic) Allergic rhinitis (Chronic) Hip pain, right (Chronic) Lower back pain (Chronic) Herpes genitalis (Chronic) Malignant basal cell neoplasm of skin (Chronic) Fatigue (Chronic) Plantar fasciitis (Chronic) Superficial injury of hand without infection (Chronic) Diverticulosis (Chronic) Other diseases of pharynx (Chronic) Arthralgia (Chronic) Myalgia (Chronic) Dyspnea (Chronic) Gout (Chronic) Nodular prostate with urinary obstruction (Chronic) Hypercalcemia (Chronic) Back pain, chronic (Chronic) Chronic left hip pain (Chronic) Neoplasm of uncertain behavior (Chronic) Sebaceous cyst (Chronic) Wrist pain, right (Chronic) Rotator cuff tear, left (Chronic) Hyperparathyroidism (Chronic) Parathyroid disorder (Chronic) Pain in right shoulder (Chronic) BPH with obstruction/lower urinary tract symptoms (Chronic) DDD (degenerative disc disease), lumbar (Chronic) Trochanteric bursitis of left hip (Chronic) Umbilical hernia (Chronic) Hyperlipidemia (Chronic) Hypothyroidism (Chronic) Diverticulosis of colon (without mention of hemorrhage) (Chronic) Internal hemorrhoids (Chronic) Colonic polyp (Chronic) Hiatal hernia with gastroesophageal reflux (Chronic) Injury of left rotator cuff (Chronic) Sleep apnea, obstructive (Chronic) Polycythemia, secondary (Chronic) Hypertension (Chronic) Peripheral edema (Chronic) Medical History (Updated 04/08/22 @ 12:53 by Uziel Ramirez MD) Allergic rhinitis Arthralgia Back pain, chronic BPH with obstruction/lower urinary tract symptoms Chronic left hip pain Colonic polyp Constipation DDD (degenerative disc disease), lumbar with myelopathy Depression Diverticulosis Diverticulosis of colon (without mention of hemorrhage) Dyspnea Erectile dysfunction Fatigue GERD (gastroesophageal reflux disease) Gout Herpes genitalis Hiatal hernia with gastroesophageal reflux Hip pain, right Hypercalcemia Hyperlipidemia Hyperparathyroidism Hypertension Hypothyroidism IBS (irritable bowel syndrome) Injury of left rotator cuff Internal hemorrhoids Leukocytosis Lower back pain Malignant basal cell neoplasm of skin Myalgia Neoplasm of uncertain behavior of skin Nodular prostate with urinary obstruction Other diseases of pharynx Pain in right shoulder Parathyroid disorder Peripheral edema Plantar fasciitis Polycythemia, secondary Rotator cuff tear, left Sebaceous cyst Sleep apnea, obstructive Superficial injury of hand without infection Trochanteric bursitis of left hip Tubulovillous adenoma of colon Umbilical hernia Wrist pain, right Surgical History History of arthroscopy of knee History of colonoscopy (12/28/17) History of hernia surgery 07/11/17 & 03/18/18 History of laparoscopy History of parathyroid surgery (09/27/15) left central neck exploration with removal of left inferior parathyroid adenoma, Dr Cody History of rotator cuff surgery left 03/19, rt 10/22 History of tonsillectomy History of vasectomy S/P epidural steroid injection (07/11/17) Dr Woods Family History Other No pertinent family history Social History household members: alone lives independently: Yes marital status: single occupational status: employed occupation: [place] other: In a new relationship daily servings fruits/ve-1 frequency: daily duration: 45-60 minutes/day smoking status stop date: 07/08/19 quit status: quit date established alcohol intake frequency: holiday/special occasion only substance use type: does not use MEDS/ALLERGIES Home Medications and Allergies Home Medications Medication Instructions Recorded Confirmed Type CPAP unit and supplies #1 ea 04/01/20 04/07/22 Rx sildenafil 100 mg tablet (Viagra) 100 mg PO DIRECTED #6 tab 04/25/21 04/07/22 Rx lansoprazole 30 mg capsule,delayed 30 mg PO BID cap 05/30/21 04/07/22 History release allopurinol 300 mg tablet 300 mg PO QAM 08/26/21 04/07/22 History [id number] 200 mcg-lycop 1 tab PO QAM 08/26/21 04/07/22 History 175 mcg-lutei 250 mcg-herb 178 tablet (Cristofer Multivitamin For Men) bupropion HCl 150 mg 24 hr tablet, 150 mg PO QAM #90 tab 10/24/21 04/07/22 Rx extended release hydrochlorothiazide 25 mg tablet 25 mg PO QAM #90 tab 10/24/21 04/07/22 Rx metformin 500 mg tablet 500 mg PO QAM #90 tab 01/02/22 04/07/22 Rx levothyroxine 50 mcg tablet 50 mcg PO QAM #90 tab 01/23/22 04/07/22 Rx (Synthroid) meloxicam 15 mg tablet (Mobic) 15 mg PO QAM #90 tab 01/23/22 04/07/22 Rx doxycycline hyclate 100 mg tablet 100 mg PO QAM #30 tab 01/31/22 04/07/22 Rx omega-3 acid ethyl esters 1 gram 2 cap PO BID #120 cap 02/20/22 04/07/22 Rx capsule trazodone 100 mg tablet 100 mg PO QHS #30 tab 03/17/22 04/07/22 Rx Allergies Allergy/AdvReac Type Severity Reaction Status Date / Time Nefazodone [NEFAZODONE] AdvReac Severe JOINTS Verified 03/24/22 14:28 FROZE, HEAD SWELLING Varenicline [From Chantix] AdvReac Intermediate Palpitations, Verified 03/24/22 14:28 night sweats Physical Examination Vital Signs Vital signs: Temp Pulse Resp BP Pulse Ox 97.6 F 100 H 20 103/65 94 04/08/22 11:55 04/08/22 04:00 04/08/22 11:55 04/08/22 11:55 04/08/22 11:55 General physical appearance General physical exam: well developed, well nourished, moderate distress and moderate pain; negative chronically ill Eyes Eye exam: PERRL and normal ocular movement ENT ENT exam: normal mucosa and no congestion Head Head exam IM: Present atraumatic, normal inspection and normocephalic Neck Neck exam: no masses, no bruits, trachea midline, no lymphadenopathy and no venous distension Cardiovascular Cardiovascular exam IM: Present normal rate and rhythm, RRR, +S1 and +S2; Absent JVD Respiratory Respiratory exam: normal expansion, normal respiratory effort and clear to auscultation Abdomen Abdomen: Present tender (Left lower quadrant and hypogastric); Absent organomegaly Rectum Rectum: Present normal sphincter tone, no hemorrhoids, no tenderness, no masses, mass, no bleeding and fissures Integumentary Integumentary: Present no rash, no growths and no abnormal pigmentation Neurologic Neurologic: Present normal coordination and normal sensation Musculoskeletal Musculoskeletal: Present normal gait, normal posture and other Psychiatric Psychiatric: Present oriented to time, oriented to person, oriented to place, speech is normal and memory intact Results Labs Result diagrams: 04/08/22 05:27 04/08/22 05:27 Labs: Abnormal lab results 04/07/22 04/07/22 04/07/22 Range/Units 18:05 18:15 18:24 WBC 17.2 H (4.5-11.0) K/mcL Hgb (13.7-17.5) g/dL Hct (40.1-51.0) % RDW 16.4 H (11.5-14.5) % Immature Gran % (Auto) (0.0-0.5) % Neut % (Auto) 83.7 H (38.0-78.0) % Lymph % (Auto) 6.8 L (15.5-49.0) % Lymph # (Auto) 1.17 L (1.50-4.80) K/mcL [place] # (Auto) 1.49 H (0.10-0.90) K/mcL Immature Gran # 0.09 H (0.00-0.05) K/mcl Absolute Neutrophils 14.52 H (1.80-8.00) K/mcL PT (11.9-14.5) sec POC Chloride 95 L (96-108) POC Glucose 106 H (70-105) POC WB Ioniz Calcium 1.04 L (1.16-1.32) Lactate Dehydrogenase (135-225) U/L Albumin (3.2-5.2) gm/dL Urine Appearance Cloudy A (Clear) Urine Protein 100 A (Negative) mg/dL Urine Ketones 20 A (Negative) mg/dL Urine Urobilinogen 4.0 A mg/dL Ur Leukocyte Esterase 250 A (Negative) /uL Urine RBC 115 H (0-3) /hpf Urine WBC > 182 H (0-4) /hpf Hyaline Casts 7 H (0-2) /lph Urine Mucus Many A (None) /hpf 04/08/22 04/08/22 04/08/22 Range/Units 05:27 05:27 05:27 WBC (4.5-11.0) K/mcL Hgb 12.8 L (13.7-17.5) g/dL Hct 39.5 L (40.1-51.0) % RDW 16.2 H (11.5-14.5) % Immature Gran % (Auto) 0.8 H (0.0-0.5) % Neut % (Auto) 80.9 H (38.0-78.0) % Lymph % (Auto) 9.2 L (15.5-49.0) % Lymph # (Auto) 0.81 L (1.50-4.80) K/mcL [place] # (Auto) (0.10-0.90) K/mcL Immature Gran # 0.07 H (0.00-0.05) K/mcl Absolute Neutrophils (1.80-8.00) K/mcL PT 15.1 H (11.9-14.5) sec POC Chloride (96-108) POC Glucose (70-105) POC WB Ioniz Calcium (1.16-1.32) Lactate Dehydrogenase 128 L (135-225) U/L Albumin 3.1 L (3.2-5.2) gm/dL Urine Appearance (Clear) Urine Protein (Negative) mg/dL Urine Ketones (Negative) mg/dL Urine Urobilinogen mg/dL Ur Leukocyte Esterase (Negative) /uL Urine RBC (0-3) /hpf Urine WBC (0-4) /hpf Hyaline Casts (0-2) /lph Urine Mucus (None) /hpf Diabetes panel 04/07/22 04/08/22 Range/Units 18:15 05:27 Sodium 133 (133-145) mmol/L Potassium 3.3 (3.3-5.1) mmol/L Chloride 96 (96-108) mmol/L Carbon Dioxide 27 (22-30) mmol/L BUN 13 (8-23) mg/dL Creatinine 0.9 (0.7-1.2) mg/dL Glucose 97 (70-105) mg/dL Calcium 8.7 (8.6-10.4) mg/dL AST 22 18 (<40) U/L ALT 23 20 (<40) U/L Alkaline Phosphatase 104 80 (39-117) U/L Total Protein 7.2 6.3 (5.9-8.4) gm/dL Albumin 3.8 3.1 L (3.2-5.2) gm/dL Triglycerides 101 (<150) mg/dL Calcium panel 04/07/22 04/08/22 Range/Units 18:15 05:27 Calcium 8.7 (8.6-10.4) mg/dL Phosphorus 2.9 (2.5-4.5) mg/dL Albumin 3.8 3.1 L (3.2-5.2) gm/dL Pituitary panel 04/08/22 Range/Units 05:27 Sodium 133 (133-145) mmol/L Potassium 3.3 (3.3-5.1) mmol/L Chloride 96 (96-108) mmol/L Carbon Dioxide 27 (22-30) mmol/L BUN 13 (8-23) mg/dL Creatinine 0.9 (0.7-1.2) mg/dL Glucose 97 (70-105) mg/dL Calcium 8.7 (8.6-10.4) mg/dL Adrenal panel 04/07/22 04/08/22 Range/Units 18:15 05:27 Sodium 133 (133-145) mmol/L Potassium 3.3 (3.3-5.1) mmol/L Chloride 96 (96-108) mmol/L Carbon Dioxide 27 (22-30) mmol/L BUN 13 (8-23) mg/dL Creatinine 0.9 (0.7-1.2) mg/dL Glucose 97 (70-105) mg/dL Calcium 8.7 (8.6-10.4) mg/dL Total Bilirubin 0.8 0.6 (0.1-1.0) mg/dL AST 22 18 (<40) U/L ALT 23 20 (<40) U/L Alkaline Phosphatase 104 80 (39-117) U/L Total Protein 7.2 6.3 (5.9-8.4) gm/dL Albumin 3.8 3.1 L (3.2-5.2) gm/dL All other labs normal. A/P Assessment and plan (1) Colovesical fistula: Status: Acute (2) Acute diverticulitis: Status: Acute (3) GERD (gastroesophageal reflux disease): Status: Chronic Qualifiers: Esophagitis presence: with esophagitis Qualified Code(s): K21.0 - Gastro-esophageal reflux disease with esophagitis (4) Tubulovillous adenoma of colon: Status: Chronic (5) Fatigue: Status: Chronic (6) Sleep apnea, obstructive: Status: Chronic (7) Hypertension: Status: Chronic Qualifiers: Hypertension type: essential hypertension Qualified Code(s): I10 - Essential (primary) hypertension Plan Meropenem 2 g IV every 8 hours Metronidazole 500 mg IV every 6 Lynch to dependent drainage Continue antibiotics for 5 days followed by segmental colon resection with primary anastomosis and closure of the bladder fistula Clear liquids with Enlive 3 times daily Bowel prep prior to surgery Time Spent With Patient Time: Total time spent is greater than 50% in coordination of care (as documented) at patient's floor/unit and/or counseling patient:
[2022-04-08] MEDS: MEROPENEM 2 GM in 0.9 % SODIUM CHLORIDE 100 ML IV SCH ×2 (14:24→22:01)
[2022-04-08] MEDS: fentaNYL 100 MCG/2 ML VIAL IV PRN (17:34)
[2022-04-08] MEDS ORDERED: traZODone HCL 100 MG TABLET PO SCH ×2 (21:00→23:00)
[2022-04-08] MEDS ORDERED: SENNOSIDES 1 TABLET PO SCH (21:00)
[2022-04-08] MEDS: traZODone HCL 100 MG TABLET PO SCH (22:02)
[2022-04-09] MEDS: ACETAMINOPHEN 1,000 MG/100 ML BAG IV SCH ×5 (00:31→23:30)
[2022-04-09] MEDS ORDERED: metroNIDAZOLE 0 MG/0 ML BAG IV ONE (00:38)
[2022-04-09] MEDS: metroNIDAZOLE 500 MG in PREMIX 1 BAG IV SCH ×4 (01:13→17:29)
[2022-04-09] MEDS: 0.9 % SODIUM CHLORIDE 1,000 ML IV SCH ×2 (01:14→12:03)
[2022-04-09] MEDS: fentaNYL 100 MCG/2 ML VIAL IV PRN ×3 (04:43→22:43)
[2022-04-09] MEDS ORDERED: metroNIDAZOLE 500 MG/100 ML BAG IV ONE (05:11)
[2022-04-09] MEDS: MEROPENEM 2 GM in 0.9 % SODIUM CHLORIDE 100 ML IV SCH ×3 (05:49→21:43)
[2022-04-09 06:26] LABS: Basophils # (Auto) 0.02 K/mcL (0.00-0.30); Basophils % (Auto) 0.5 % (0.0-2.0); Eosinophils # (Auto) 0.03 K/mcL (0.00-0.70); Eosinophils % (Auto) 0.7 % (0.0-7.0); Hematocrit 40.5 % (40.1-51.0); Hemoglobin 13.1 g/dL (13.7-17.5); Lymphocytes # (Auto) 0.74 K/mcL (1.50-4.80); Lymphocytes % (Auto) 16.7 % (15.5-49.0); Mean Corpuscular HGB Conc 32.3 g/dL (31.0-36.0); Monocytes # (Auto) 0.64 K/mcL (0.10-0.90); Monocytes % (Auto) 14.4 % (1.0-12.0); Neutrophils % (Auto) 66.6 % (38.0-78.0); Platelet Count 183 K/mcL (140-440); RBC 4.71 M/mcL (4.63-6.08); Red Cell Distribution Width 16.2 % (11.5-14.5); WBC 4.4 K/mcL (4.5-11.0)
[2022-04-09 06:52] LABS: ALT/SGPT 25 U/L (<40); AST/SGOT 22 U/L (<40); Albumin 2.9 gm/dL (3.2-5.2); Alkaline Phosphatase 73 U/L (39-117); Bilirubin,Direct < 0.2 mg/dL (0-0.3); Bilirubin,Total 0.5 mg/dL (0.1-1.0); Blood Urea Nitrogen 11 mg/dL (8-23); Calcium 8.8 mg/dL (8.6-10.4); Carbon Dioxide 26 mmol/L (22-30); Chloride 98 mmol/L (96-108); Glomerular Filtration Rate 94; Glucose 97 mg/dL (70-105); Lactate Dehydrogenase 149 U/L (135-225); Phosphorous 2.8 mg/dL (2.5-4.5); Triglycerides 82 mg/dL (<150); Uric Acid 4.2 mg/dL (2.5-8.0)
[2022-04-09 07:08] LABS: Carcinoembryonic Antigen 1.8 ng/mL (<3.4)
[2022-04-09] MEDS: PANTOPRAZOLE 40 MG TABLET PO SCH ×2 (07:37→17:29)
[2022-04-09] MEDS: buPROPion 150 MG TAB.XL.24H PO SCH (08:59)
[2022-04-09] MEDS: LEVOTHYROXINE 50 MCG TABLET PO SCH (08:59)
[2022-04-09] MEDS: HYDROcodone/APAP 10/325MG TABLET PO PRN ×2 (08:59→23:30)
[2022-04-09] MEDS: metFORMIN 500 MG TABLET PO SCH (08:59)
--- NOTE | 2022-04-09 13:41 | General Surgery Progress Note ---
SUBJECTIVE Subjective Patient information: Note initiated : 04/09/22 at 1:37 pm Service Date, if different from initiated Date: [] Patient: Jason Lewis 62 y/o M admitted on 04/07/22 for Urogenital Male. Chief Complaint: [] Principal diagnosis: Colovesical fistula Interval history: Patient states that he feels better. He is concerned that he has liquid bowel movements with incontinence. The movement of urine from his bladder to his rectum is explained in a way that he can understand. His abdominal and pelvic pain is improved. Potassium 3.3 BUN and creatinine are normal; white blood count 4.4 hemoglobin 13.1, CEA is 1.8 Constitutional Vitals: Vital Signs Temp Pulse Resp BP Pulse Ox 97.2 F 74 20 98/61 93 04/09/22 11:55 04/09/22 04:01 04/09/22 11:55 04/09/22 11:55 04/09/22 11:55 Period Temp Pulse Resp BP Sys/Rios Pulse Ox Last 24 Hr 96.4 F-99.9 F 74-108 12-20 97-143/61-96 91-98 Intake and Output 04/08/22 04/09/22 04/09/22 21:59 05:59 13:59 Intake Total 910 1880 200 Output Total 1450 675 Balance -540 1205 200 Weight 204 lb 1.6 oz Intake & Output: Intake & Output 04/08/22 04/09/22 04/09/22 21:59 05:59 13:59 Intake Total 910 1880 200 Output Total 1450 675 Balance -540 1205 200 Weight 204 lb 1.6 oz Intake: IV 300 1400 200 Sodium Chloride 0.9% 1,000 ml @ 1000 75 mls/hr IV .[id number] J[facility] Rx#: [id number] Merrem 2 gm In Sodium Chloride 100 100 100 0.9% 100 ml @ 100 mls/hr IV Q8H J[facility] Rx#:[id number] Flagyl 500 mg In Premix 1 Bag @ 100 100 100 100 mls/hr IV Q6H JES[facility]S Rx#: [id number] Oral 240 480 GI Tube Flush 200 CBI Fluid 170 Output: Urine Catheter Amount 675 Void Amount 1150 Urine/Stool Mix 150 CBI Fluid 150 Other: Meal Lunch Percent of Meal Consumed 100% Feeding Ability Independent Urine Appearance Clear Clear Sediment Uretheral (Lynch) Clear Sediment Sediment Urine Color Dark Yellow Dark Anna Dark Yellow Uretheral (Lynch) Dark Yellow Dark Anna Dark Anna Urine Odor Normal Strong Normal Stool Size Moderate Small Stool Color Brown Brown Yellow Stool Consistency Normal for Patient Soft Soft Liquid Formed # Voids 1 # Bowel Movements 1 1 # of times incontinent of 1 Bowels Net CBI -20 Neck Neck exam: Present normal inspection Respiratory Respiratory exam: Present normal respiratory exam; Absent rales, rhonchi or wheezes Cardiovascular Cardiovascular exam: Present normal rate and rhythm, RRR, +S1 and +S2; Absent gallop or JVD GI/Abdominal GI/Abdominal exam: Present normal bowel sounds, soft and tenderness (Much less tenderness in left lower quadrant and hypogastrium) Extremities Exam Extremities exam: Present full ROM and neurovascular intact Neurological Exam Neurological exam: Present oriented X3 and reflexes normal; Absent motor sensory deficit Psychiatric Psychiatric exam: Present normal affect and normal mood A/P Assessment and plan (1) Acute diverticulitis: Status: Acute (2) Colovesical fistula: Status: Acute (3) GERD (gastroesophageal reflux disease): Status: Chronic Qualifiers: Esophagitis presence: with esophagitis Qualified Code(s): K21.0 - Gastro-esophageal reflux disease with esophagitis Narrative A/P Narrative: Patient continues to improve Will continue present treatment plan Time Spent With Patient Time: Total time spent is greater than 50% in coordination of care (as documented) at patient's floor/unit and/or counseling patient:
[2022-04-09] MEDS: traZODone HCL 100 MG TABLET PO SCH (21:43)
[2022-04-10] MEDS: metroNIDAZOLE 500 MG in PREMIX 1 BAG IV SCH ×5 (00:09→23:42)
[2022-04-10] MEDS: 0.9 % SODIUM CHLORIDE 1,000 ML IV SCH ×3 (03:08→16:36)
[2022-04-10] MEDS: ACETAMINOPHEN 1,000 MG/100 ML BAG IV SCH ×4 (05:13→23:41)
[2022-04-10] MEDS: MEROPENEM 2 GM in 0.9 % SODIUM CHLORIDE 100 ML IV SCH ×3 (05:56→21:34)
[2022-04-10 06:09] LABS: Basophils # (Auto) 0.04 K/mcL (0.00-0.30); Basophils % (Auto) 0.5 % (0.0-2.0); Eosinophils # (Auto) 0.03 K/mcL (0.00-0.70); Eosinophils % (Auto) 0.4 % (0.0-7.0); Hematocrit 40.4 % (40.1-51.0); Hemoglobin 13.1 g/dL (13.7-17.5); Lymphocytes # (Auto) 1.15 K/mcL (1.50-4.80); Lymphocytes % (Auto) 15.7 % (15.5-49.0); Mean Cell Volume 85.4 fL (80.0-100.0); Mean Corpuscular HGB Conc 32.4 g/dL (31.0-36.0); Mean Platelet Volume 8.8 fL (7.4-10.4); Monocytes # (Auto) 0.94 K/mcL (0.10-0.90); Monocytes % (Auto) 12.8 % (1.0-12.0); Neutrophils % (Auto) 69.4 % (38.0-78.0); Platelet Count 195 K/mcL (140-440); RBC 4.73 M/mcL (4.63-6.08); Red Cell Distribution Width 16.2 % (11.5-14.5); WBC 7.3 K/mcL (4.5-11.0)
[2022-04-10 06:31] LABS: ALT/SGPT 35 U/L (<40); AST/SGOT 32 U/L (<40); Albumin 2.6 gm/dL (3.2-5.2); Albumin/Globulin Ratio 0.9 (1.0-2.3); Alkaline Phosphatase 84 U/L (39-117); Bilirubin,Direct < 0.2 mg/dL (0-0.3); Bilirubin,Total 0.3 mg/dL (0.1-1.0); Blood Urea Nitrogen 11 mg/dL (8-23); Calcium 8.5 mg/dL (8.6-10.4); Carbon Dioxide 30 mmol/L (22-30); Chloride 101 mmol/L (96-108); Globulin 2.9 gm/dL (2.2-3.7); Glomerular Filtration Rate 100; Glucose 101 mg/dL (70-105); Lactate Dehydrogenase 189 U/L (135-225); Phosphorous 2.1 mg/dL (2.5-4.5); Triglycerides 100 mg/dL (<150); Uric Acid 4.3 mg/dL (2.5-8.0)
[2022-04-10] MEDS: PANTOPRAZOLE 40 MG TABLET PO SCH ×2 (07:44→16:35)
[2022-04-10] MEDS: HYDROcodone/APAP 10/325MG TABLET PO PRN (08:28)
[2022-04-10] MEDS: LEVOTHYROXINE 50 MCG TABLET PO SCH (08:28)
[2022-04-10] MEDS: metFORMIN 500 MG TABLET PO SCH (08:28)
[2022-04-10] MEDS: buPROPion 150 MG TAB.XL.24H PO SCH (08:28)
--- NOTE | 2022-04-10 14:22 | General Surgery Progress Note ---
SUBJECTIVE Subjective Patient information: Note initiated : 04/10/22 at 2:18 pm Service Date, if different from initiated Date: [] Patient: Jason Lewis 62 y/o M admitted on 04/07/22 for Urogenital Male. Chief Complaint: [] Principal diagnosis: Colovesical fistula Interval history: Patient continues to improve. He has been afebrile. White blood count 7.3, hemoglobin 13.1, hematocrit 40.4, BUN 11 and creatinine 0.7, phosphorus 2.1. Patient has some bladder spasm. He is advised that this will continue until his fistula is closed. He is counseled for laparotomy with segmental sigmoid colon resection and closure of bladder fistula to be performed on Sunday. Constitutional Vitals: Vital Signs Temp Pulse Resp BP Pulse Ox 98.2 F 85 16 130/81 94 04/10/22 11:35 04/10/22 11:35 04/10/22 11:35 04/10/22 11:35 04/10/22 11:35 Period Temp Pulse Resp BP Sys/Rios Pulse Ox Last 24 Hr 96.6 F-99.1 F 80-89 14-20 102-135/68-84 92-94 Intake and Output 04/10/22 04/10/22 04/10/22 05:59 13:59 21:59 Intake Total 1500 740 Output Total 1300 950 Balance 200 -210 Intake & Output: Intake & Output 04/10/22 04/10/22 04/10/22 05:59 13:59 21:59 Intake Total 1500 740 Output Total 1300 950 Balance 200 -210 Intake: Nourishment/Supplement quantity 240 (ml) IV 1300 500 Sodium Chloride 0.9% 1,000 ml @ 1000 75 mls/hr IV .[id number] [facility] Rx#: [id number] Merrem 2 gm In Sodium Chloride 100 100 0.9% 100 ml @ 100 mls/hr IV Q8H [facility] Rx#:[id number] Flagyl 500 mg In Premix 1 Bag @ 100 200 100 mls/hr IV Q6H J[facility] Rx#: [id number] Oral 200 Output: Urine Catheter Amount 1300 950 Other: Meal Breakfast Percent of Meal Consumed 100% Feeding Ability Independent Urine Appearance Cloudy Cloudy Sediment Uretheral (Lynch) Cloudy Clear Sediment Sediment Urine Color Dark Anna Dark Anna Uretheral (Lynch) Dark Anna Dark Anna Urine Odor Strong Strong Stool Size Copious Moderate Stool Color Brown Yellow Stool Consistency Liquid Liquid # Unmeasured Emesis 1 # Bowel Movements 1 ENT ENT exam: Present mucous membranes moist and normal oropharynx Neck Neck exam: Present full ROM and normal inspection Respiratory Respiratory exam: Present normal respiratory exam and CTAB Cardiovascular Cardiovascular exam: Present normal rate and rhythm, RRR, +S1 and +S2; Absent JVD GI/Abdominal GI/Abdominal exam: Present normal bowel sounds, soft and tenderness (Minimal tenderness in suprapubic area) Extremities Exam Extremities exam: Present normal inspection and neurovascular intact A/P Assessment and plan (1) Colovesical fistula: Status: Acute (2) Acute diverticulitis: Status: Acute Plan Patient will undergo bowel prep tomorrow with plans for colon resection and closure of bladder fistula on Sunday Time Spent With Patient Time: Total time spent is greater than 50% in coordination of care (as documented) at patient's floor/unit and/or counseling patient:
[2022-04-10] MEDS: POTASSIUM PHOSPHATE 40 MEQ in DEXTROSE 5% IN WATER 500 ML IV SCH ×2 (16:35→20:41)
[2022-04-10] MEDS: ONDANSETRON 4 MG/2 ML VIAL IV PRN (19:40)
[2022-04-10] MEDS: traZODone HCL 100 MG TABLET PO SCH (21:40)
[2022-04-11] MEDS: 0.9 % SODIUM CHLORIDE 1,000 ML IV SCH ×3 (03:13→19:59)
[2022-04-11] MEDS ORDERED: PEG 3350/NA SULF,BICARB,CL/KCL 4,000 ML ORAL.SOL PO ONE (05:00)
[2022-04-11] MEDS: ACETAMINOPHEN 1,000 MG/100 ML BAG IV SCH ×4 (05:53→23:41)
[2022-04-11] MEDS: MEROPENEM 2 GM in 0.9 % SODIUM CHLORIDE 100 ML IV SCH ×3 (05:53→21:15)
[2022-04-11] MEDS: metroNIDAZOLE 500 MG in PREMIX 1 BAG IV SCH ×4 (05:53→23:40)
[2022-04-11] MEDS: PANTOPRAZOLE 40 MG TABLET PO SCH ×2 (07:26→17:02)
[2022-04-11] MEDS: buPROPion 150 MG TAB.XL.24H PO SCH (08:04)
[2022-04-11] MEDS: LEVOTHYROXINE 50 MCG TABLET PO SCH (08:05)
[2022-04-11] MEDS: metFORMIN 500 MG TABLET PO SCH (08:05)
[2022-04-11] MEDS: ONDANSETRON 4 MG/2 ML VIAL IV PRN (11:34)
--- NOTE | 2022-04-11 13:32 | General Surgery Progress Note ---
SUBJECTIVE Subjective Patient information: Note initiated : 04/11/22 at 1:26 pm Service Date, if different from initiated Date: [] Patient: Jason Lewis 62 y/o M admitted on 04/07/22 for Urogenital Male. Chief Complaint: [] Principal diagnosis: Colovesical fistula Interval history: Patient is doing well. He is undergoing bowel prep and had some nausea with vomiting earlier. I have allowed him to decrease the rapidity with which he was drinking the prep. There is increased sediment in his urine which is anticipated since his stool is much thinner. He does not have any complaint of abdominal pain. He is counseled for segmental colon resection and repair of bladder fistula in the morning Constitutional Vitals: Vital Signs Temp Pulse Resp BP Pulse Ox 97.3 F 85 18 126/83 91 04/11/22 06:46 04/11/22 06:46 04/11/22 06:46 04/11/22 06:46 04/11/22 06:46 Period Temp Pulse Resp BP Sys/Rios Pulse Ox Last 24 Hr 97.3 F-98.5 F 77-88 18-20 111-132/73-85 91-96 Intake and Output 04/10/22 04/11/22 04/11/22 21:59 05:59 13:59 Intake Total 2449 1449.0909 200 Output Total 1700 2100 800 Balance 749 -650.9091 -600 Weight 208 lb Intake & Output: Intake & Output 04/10/22 04/11/22 04/11/22 21:59 05:59 13:59 Intake Total 2449 1449.0909 200 Output Total 1700 2100 800 Balance 749 -650.9091 -600 Weight 208 lb Intake: Nourishment/Supplement quantity 240 (ml) IV 0747 303.1520 200 Sodium Chloride 0.9% 1,000 ml @ 1000 75 mls/hr IV .[id number] [facility] Rx#: [id number] Merrem 2 gm In Sodium Chloride 100 100 0.9% 100 ml @ 100 mls/hr IV Q8H [facility] Rx#:[id number] Potassium Phosphate 40 Meq In 256 746.6676 Dextrose 5% in Water 500 ml @ 127.273 mls/hr IV Q4H [facility] Rx#: [id number] Flagyl 500 mg In Premix 1 Bag @ 100 100 100 100 mls/hr IV Q6H [facility] Rx#: [id number] Oral 240 400 GI Tube Flush 400 Output: Urine Catheter Amount 1700 2100 800 Other: Meal Nourishment/Supplement Nourishment/Supplement Nourishment/Supplement name ensure ensure Urine Appearance Clear Sediment Uretheral (Lynch) Sediment Sediment Urine Color Dark Yellow Uretheral (Lynch) Yellow Brown Urine Odor Normal Stool Size Large Stool Color Brown Brown Stool Consistency Soft Loose Liquid # Bowel Movements 1 3 Eye Eye exam: Present EOMI and PERRL Pupils: Present normal accommodation ENT ENT exam: Present mucous membranes moist, normal external ear exam and normal oropharynx Neck Neck exam: Present full ROM and normal inspection; Absent tenderness Respiratory Respiratory exam: Present normal respiratory exam and CTAB; Absent wheezes Cardiovascular Cardiovascular exam: Present normal rate and rhythm, RRR, +S1 and +S2; Absent gallop or JVD GI/Abdominal GI/Abdominal exam: Present normal bowel sounds, soft and tenderness (Mild tenderness in left lower quadrant and hypogastrium); Absent distended Extremities Exam Extremities exam: Present full ROM and normal inspection; Absent neurovascular intact Neurological Exam Neurological exam: Present alert, CN II-XII intact, oriented X3 and reflexes normal; Absent motor sensory deficit Psychiatric Psychiatric exam: Present normal affect and normal mood A/P Assessment and plan (1) Colovesical fistula: Status: Acute (2) Acute diverticulitis: Status: Acute (3) Hypertension: Status: Chronic Qualifiers: Hypertension type: essential hypertension Qualified Code(s): I10 - Essential (primary) hypertension Narrative A/P Narrative: Who no longer continue bowel prep Schedule for laparotomy in the morning Time Spent With Patient Time: Total time spent is greater than 50% in coordination of care (as documented) at patient's floor/unit and/or counseling patient:
[2022-04-11] MEDS: traZODone HCL 100 MG TABLET PO SCH (23:40)
[2022-04-12] MEDS: ACETAMINOPHEN 1,000 MG/100 ML BAG IV SCH ×4 (06:13→23:55)
[2022-04-12] MEDS: metroNIDAZOLE 500 MG in PREMIX 1 BAG IV SCH ×4 (06:14→23:55)
[2022-04-12] MEDS: MEROPENEM 2 GM in 0.9 % SODIUM CHLORIDE 100 ML IV SCH ×3 (06:14→22:23)
[2022-04-12] MEDS: PANTOPRAZOLE 40 MG TABLET PO SCH (08:02)
[2022-04-12] MEDS ORDERED: SCOPOLAMINE 1 PATCH PATCH TOPICAL PRN (09:00)
[2022-04-12] MEDS ORDERED: IPRATROPIUM/ALBUTEROL 3 ML AMPUL.NEB NEB PRN ×2 (09:00→14:54)
[2022-04-12] MEDS: 0.9 % SODIUM CHLORIDE 1,000 ML IV SCH ×3 (10:40→23:58)
[2022-04-12] MEDS: buPROPion 150 MG TAB.XL.24H PO SCH (10:40)
[2022-04-12] MEDS: metFORMIN 500 MG TABLET PO SCH (10:40)
[2022-04-12] MEDS: LEVOTHYROXINE 50 MCG TABLET PO SCH (10:40)
[2022-04-12] MEDS ORDERED: LIDOCAINE HCL/PF 100 MG/5 ML SYRINGE IV ONE (12:23)
[2022-04-12] MEDS ORDERED: GLYCOPYRROLATE 0.2 MG/ML VIAL IV ONE (12:23)
[2022-04-12] MEDS ORDERED: ePHEDrine 50 MG/5 ML SYRINGE (ANEST) IV ONE (12:23)
[2022-04-12] MEDS ORDERED: METOPROLOL TARTRATE 5 MG/5 ML VIAL IV ONE (12:23)
[2022-04-12] MEDS ORDERED: BUPIVACAINE PF 0.25% 30 ML VIAL IJ ONE (12:23)
[2022-04-12] MEDS ORDERED: MAGNESIUM SULFATE 2 GM/50 ML BAG IV ONE (12:23)
[2022-04-12] MEDS ORDERED: ONDANSETRON 4 MG/2 ML VIAL ONE (12:23)
[2022-04-12] MEDS ORDERED: PROPOFOL 200 MG/20 ML VIAL IV ONE (12:23)
[2022-04-12] MEDS ORDERED: SUGAMMADEX SODIUM 200 MG/2 ML VIAL IV ONE (12:23)
[2022-04-12] MEDS ORDERED: DEXAMETHASONE 10 MG/ML VIAL ONE (12:23)
[2022-04-12] MEDS ORDERED: fentaNYL 100 MCG/2 ML VIAL IV ONE (12:23)
[2022-04-12] MEDS ORDERED: KETAMINE 50 MG/ML Syringe (ANEST) IV ONE (12:23)
[2022-04-12] MEDS ORDERED: ROCURONIUM 10 MG/ML ML IV ONE (12:23)
--- NOTE | 2022-04-12 14:53 | Brief Operative Note ---
Brief Operative Note Date of procedure: 04/12/22 Pre-op diagnosis: acute diverticulitis and colovesical fistula Post-op diagnosis: other (acute diverticulitis and colovesical fistula) Procedure: sigmoid colectomy and closure of bladder fistula Grafts/Implants: No (clint drain #10) Anesthesia: GETA Findings: midsigmoid diverticulitis with dense adherence to posterios wall of bladder and fistula in lower bladder above peritoneal reflection Complications: other Surgeon: Uziel Ramirez Estimated blood loss (cc): 50 Specimens Removed/Pathology: other (sigmoid colon segment) Condition: stable Disposition: PACU
[2022-04-12] MEDS ORDERED: LACTATED RINGERS 250 ML IV PRN (14:54)
[2022-04-12] MEDS ORDERED: KETOROLAC 30 MG/ML VIAL IV PRN (14:54)
[2022-04-12] MEDS ORDERED: PROMETHAZINE 25 MG/ML VIAL IV PRN (14:54)
[2022-04-12] MEDS ORDERED: ACETAMINOPHEN 1,000 MG/100 ML BAG IV ONE (14:54)
[2022-04-12] MEDS ORDERED: MEPERIDINE 25 MG/ML VIAL IV PRN (14:54)
[2022-04-12] MEDS ORDERED: ONDANSETRON 4 MG/2 ML VIAL IV PRN (14:54)
[2022-04-12] MEDS ORDERED: NALOXONE HCL 0.4 MG/ML VIAL IV PRN (14:54)
[2022-04-12] MEDS ORDERED: LACTATED RINGERS 1,000 ML IV SCH (15:00)
[2022-04-12] MEDS ORDERED: METHOCARBAMOL 1,000 MG/10 ML VIAL IV PRN (15:33)
[2022-04-12] MEDS ORDERED: HYDROmorphone 0.5 MG/0.5 ML SYRINGE IV PRN (15:33)
[2022-04-12] MEDS: HYDROmorphone 1 MG/ML SYRINGE IV PRN ×3 (16:18→23:24)
[2022-04-12] MEDS ORDERED: 0.9 % SODIUM CHLORIDE 1,000 ML IV SCH (18:02)
[2022-04-12] MEDS: SUCRETS LOZENGE PO PRN (18:40)
[2022-04-12] MEDS: fentaNYL 100 MCG/2 ML VIAL IV PRN (18:40)
[2022-04-12] MEDS: PANTOPRAZOLE 40 MG VIAL IV SCH (18:41)
[2022-04-12] MEDS: ONDANSETRON 4 MG/2 ML VIAL IV PRN (18:41)
[2022-04-12] MEDS ORDERED: PANTOPRAZOLE 40 MG VIAL IV ONE (18:43)
[2022-04-12] MEDS ORDERED: SUCRETS LOZENGE PO ONE (18:47)
[2022-04-12] MEDS: traZODone HCL 150 MG TABLET PO SCH (20:50)
[2022-04-13] MEDS: 0.9 % SODIUM CHLORIDE 1,000 ML IV SCH ×5 (01:57→19:36)
[2022-04-13] MEDS: HYDROmorphone 1 MG/ML SYRINGE IV PRN ×6 (04:46→21:40)
[2022-04-13] MEDS ORDERED: BENZOCAINE 1 SPRAY BOTTLE TOPICAL PRN (05:58)
[2022-04-13] MEDS: MEROPENEM 2 GM in 0.9 % SODIUM CHLORIDE 100 ML IV SCH ×3 (06:02→21:41)
[2022-04-13] MEDS: metroNIDAZOLE 500 MG in PREMIX 1 BAG IV SCH ×3 (06:02→18:29)
[2022-04-13] MEDS: ACETAMINOPHEN 1,000 MG/100 ML BAG IV SCH ×3 (06:02→18:26)
[2022-04-13 07:22] LABS: Basophils # (Auto) 0.02 K/mcL (0.00-0.30); Basophils % (Auto) 0.2 % (0.0-2.0); Eosinophils # (Auto) 0 K/mcL (0.00-0.70); Eosinophils % (Auto) 0 % (0.0-7.0); Hemoglobin 13.6 g/dL (13.7-17.5); Lymphocytes % (Auto) 9.2 % (15.5-49.0); Mean Cell Volume 85.5 fL (80.0-100.0); Mean Corpuscular HGB Conc 32.4 g/dL (31.0-36.0); Monocytes % (Auto) 10.1 % (1.0-12.0); Neutrophils % (Auto) 77.7 % (38.0-78.0); Platelet Count 242 K/mcL (140-440); RBC 4.91 M/mcL (4.63-6.08); Red Cell Distribution Width 17.8 % (11.5-14.5); WBC 10.9 K/mcL (4.5-11.0)
[2022-04-13 07:50] LABS: ALT/SGPT 60 U/L (<40); AST/SGOT 38 U/L (<40); Albumin 3.3 gm/dL (3.2-5.2); Albumin/Globulin Ratio 1.1 (1.0-2.3); Alkaline Phosphatase 95 U/L (39-117); Bilirubin,Direct < 0.2 mg/dL (0-0.3); Bilirubin,Total 0.5 mg/dL (0.1-1.0); Blood Urea Nitrogen 10 mg/dL (8-23); Calcium 8.6 mg/dL (8.6-10.4); Carbon Dioxide 25 mmol/L (22-30); Chloride 102 mmol/L (96-108); Globulin 2.9 gm/dL (2.2-3.7); Glomerular Filtration Rate 100; Glucose 110 mg/dL (70-105); Lactate Dehydrogenase 237 U/L (135-225); Phosphorous 2.7 mg/dL (2.5-4.5); Triglycerides 161 mg/dL (<150); Uric Acid 4.5 mg/dL (2.5-8.0)
[2022-04-13] MEDS: PANTOPRAZOLE 40 MG VIAL IV SCH ×2 (08:12→17:17)
[2022-04-13] MEDS: LEVOTHYROXINE 100 MCG VIAL IV SCH (08:12)
[2022-04-13] MEDS: buPROPion 150 MG TAB.XL.24H PO SCH (08:35)
[2022-04-13] MEDS: SUCRETS LOZENGE PO PRN (11:44)
--- NOTE | 2022-04-13 16:38 | General Surgery Progress Note ---
SUBJECTIVE Subjective Patient information: Note initiated : 04/13/22 at 4:33 pm Service Date, if different from initiated Date: [] Patient: Jason Lewis 62 y/o M admitted on 04/07/22 for Urogenital Male. Chief Complaint: [] Principal diagnosis: Colovesical fistula Interval history: Patient has the anticipated amount of abdominal pain. He has not been out of bed and is advised to twice daily. He has been afebrile his urine is clear without any debris or blood. White blood count 10.9, hemoglobin 13.6, hematocrit 42, potassium 4.4, BUN 10, creatinine 0.7 Constitutional Vitals: Vital Signs Temp Pulse Resp BP Pulse Ox 98.0 F 79 18 137/83 94 04/13/22 16:00 04/13/22 16:00 04/13/22 16:00 04/13/22 16:00 04/13/22 16:00 Period Temp Pulse Resp BP Sys/Rios Pulse Ox Last 24 Hr 96.6 F-98.0 F 74-84 16-18 125-139/80-87 91-94 Intake and Output 04/13/22 04/13/22 04/13/22 05:59 13:59 21:59 Intake Total 1300 1400 1100 Output Total 3330 800 Balance -2030 600 1100 Intake & Output: Intake & Output 04/13/22 04/13/22 04/13/22 05:59 13:59 21:59 Intake Total 1300 1400 1100 Output Total 3330 800 Balance -2030 600 1100 Intake: IV 1300 1400 1100 Sodium Chloride 0.9% 1,000 ml @ 1000 1000 1000 150 mls/hr IV .[id number] [facility] Rx#: [id number] Merrem 2 gm In Sodium Chloride 100 100 0.9% 100 ml @ 100 mls/hr IV Q8H [facility] Rx#:[id number] Flagyl 500 mg In Premix 1 Bag @ 100 200 100 mls/hr IV Q6H [facility] Rx#: [id number] Output: Gastric Drainage 550 NG/OG 550 Drainage 30 Abdomen 30 Urine Catheter Amount 600 800 Void Amount 2150 Other: Urine Appearance Clear Uretheral (Lynch) Clear Urine Color Bright Yellow Uretheral (Lynch) Bright Yellow Neck Neck exam: Present full ROM and normal inspection; Absent tenderness Respiratory Respiratory exam: Present normal respiratory exam and CTAB; Absent rales, rhonchi or wheezes Cardiovascular Cardiovascular exam: Present normal rate and rhythm, RRR, +S1 and +S2; Absent JVD GI/Abdominal GI/Abdominal exam: Present normal bowel sounds (Good active bowel sounds) and distended (Mild distention but soft) Additional comments: Incision looks good without any bleeding Extremities Exam Extremities exam: Present normal inspection and neurovascular intact Neurological Exam Neurological exam: Present motor sensory deficit, normal gait and oriented X3 Psychiatric Psychiatric exam: Present normal affect and normal mood A/P Assessment and plan (1) Acute diverticulitis: Status: Acute (2) Colovesical fistula: Status: Acute Plan Patient is doing well. We will continue. Encouraged patient to be out of bed at least twice. Check labs in the morning Time Spent With Patient Time: Total time spent is greater than 50% in coordination of care (as documented) at patient's floor/unit and/or counseling patient:
[2022-04-13] MEDS: traZODone HCL 150 MG TABLET PO SCH (21:41)
[2022-04-14] MEDS: metroNIDAZOLE 500 MG in PREMIX 1 BAG IV SCH ×4 (00:19→17:29)
[2022-04-14] MEDS: ACETAMINOPHEN 1,000 MG/100 ML BAG IV SCH ×4 (00:19→18:18)
[2022-04-14] MEDS: 0.9 % SODIUM CHLORIDE 1,000 ML IV SCH ×4 (02:42→22:13)
[2022-04-14] MEDS: HYDROmorphone 1 MG/ML SYRINGE IV PRN ×5 (04:22→22:13)
[2022-04-14] MEDS: fentaNYL 100 MCG/2 ML VIAL IV PRN (05:04)
[2022-04-14] MEDS: MEROPENEM 2 GM in 0.9 % SODIUM CHLORIDE 100 ML IV SCH ×3 (05:43→22:13)
[2022-04-14 06:13] LABS: Basophils # (Auto) 0.03 K/mcL (0.00-0.30); Basophils % (Auto) 0.3 % (0.0-2.0); Eosinophils # (Auto) 0.04 K/mcL (0.00-0.70); Eosinophils % (Auto) 0.4 % (0.0-7.0); Hematocrit 41.5 % (40.1-51.0); Hemoglobin 13.7 g/dL (13.7-17.5); Lymphocytes # (Auto) 1.23 K/mcL (1.50-4.80); Lymphocytes % (Auto) 12.3 % (15.5-49.0); Mean Cell Volume 85.6 fL (80.0-100.0); Mean Platelet Volume 8.6 fL (7.4-10.4); Monocytes # (Auto) 0.86 K/mcL (0.10-0.90); Monocytes % (Auto) 8.6 % (1.0-12.0); Neutrophils % (Auto) 76.5 % (38.0-78.0); Platelet Count 255 K/mcL (140-440); RBC 4.85 M/mcL (4.63-6.08); Red Cell Distribution Width 17.5 % (11.5-14.5)
[2022-04-14 06:27] LABS: ALT/SGPT 44 U/L (<40); AST/SGOT 27 U/L (<40); Albumin 3.1 gm/dL (3.2-5.2); Alkaline Phosphatase 86 U/L (39-117); Bilirubin,Direct < 0.2 mg/dL (0-0.3); Bilirubin,Total 0.6 mg/dL (0.1-1.0); Blood Urea Nitrogen 10 mg/dL (8-23); Calcium 8.7 mg/dL (8.6-10.4); Carbon Dioxide 25 mmol/L (22-30); Chloride 98 mmol/L (96-108); Globulin 3.2 gm/dL (2.2-3.7); Glomerular Filtration Rate 106; Glucose 91 mg/dL (70-105); Lactate Dehydrogenase 246 U/L (135-225); Triglycerides 221 mg/dL (<150); Uric Acid 4.8 mg/dL (2.5-8.0)
[2022-04-14] MEDS: buPROPion 150 MG TAB.XL.24H PO SCH (07:26)
[2022-04-14] MEDS: PANTOPRAZOLE 40 MG VIAL IV SCH ×2 (07:35→17:29)
[2022-04-14] MEDS: LEVOTHYROXINE 100 MCG VIAL IV SCH (07:35)
--- NOTE | 2022-04-14 10:29 | EKG ---
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
--- NOTE | 2022-04-14 14:43 | General Surgery Progress Note ---
SUBJECTIVE Subjective Patient information: Note initiated : 04/14/22 at 2:40 pm Service Date, if different from initiated Date: [] Patient: Jason Lewis 62 y/o M admitted on 04/07/22 for Urogenital Male. Chief Complaint: [] Principal diagnosis: Colovesical fistula Interval history: Patient is improved. He has less discomfort. He is significantly weakened. He has not had any respiratory difficulty. He denies nausea. He has not had any flatus. Constitutional Vitals: Vital Signs Temp Pulse Resp BP Pulse Ox O2 Del Method O2 Flow Rate 97.7 F 85 18 150/97 95 3 04/14/22 11:30 04/14/22 11:30 04/14/22 11:30 04/14/22 11:30 04/14/22 11:30 04/14/22 11:30 04/14/22 11:30 Period Temp Pulse Resp BP Sys/Rios Pulse Ox O2 Del Method O2 Flow Rate Last 24 Hr 97 F-98.7 F 75-88 16-20 122-160/77-97 91-95 Nasal Cannula- Nasal Cannula 2-3 Intake and Output 04/14/22 04/14/22 04/14/22 05:59 13:59 21:59 Intake Total 1350 1500 Output Total 3077.5 950 Balance -1727.5 550 Intake & Output: Intake & Output 04/14/22 04/14/22 04/14/22 05:59 13:59 21:59 Intake Total 1350 1500 Output Total 3077.5 950 Balance -1727.5 550 Intake: IV 1200 1500 Sodium Chloride 0.9% 1,000 ml @ 900 1000 150 mls/hr IV .[id number] [facility] Rx#: [id number] Merrem 2 gm In Sodium Chloride 100 100 0.9% 100 ml @ 100 mls/hr IV Q8H [facility] Rx#:[id number] Flagyl 500 mg In Premix 1 Bag @ 100 200 100 mls/hr IV Q6H [facility] Rx#: [id number] Oral 150 Tube Feeding 0 Output: Gastric Drainage 500 NG/OG 500 Drainage 2.5 Abdomen 2.5 Urine Catheter Amount 2575 950 Other: Urine Appearance Sediment Clear Uretheral (Lynch) Clear Clear Urine Color Light Anna Dark Yellow Uretheral (Lynch) Bright Yellow Bright Yellow Urine Odor Normal Normal Neck Neck exam: Present full ROM and normal inspection Respiratory Respiratory exam: Present CTAB; Absent rales or wheezes Cardiovascular Cardiovascular exam: Present normal rate and rhythm, RRR, +S1 and +S2; Absent JVD GI/Abdominal GI/Abdominal exam: Present normal bowel sounds, soft and tenderness (. Moderate incisional tenderness); Absent distended or hernia Extremities Exam Extremities exam: Present normal inspection and neurovascular intact Neurological Exam Neurological exam: Present normal gait, oriented X3 and reflexes normal; Absent motor sensory deficit Psychiatric Psychiatric exam: Present normal affect and normal mood A/P Assessment and plan (1) Acute diverticulitis: Status: Acute (2) Colovesical fistula: Status: Acute Time Spent With Patient Time: Total time spent is greater than 50% in coordination of care (as documented) at patient's floor/unit and/or counseling patient:
[2022-04-14] MEDS: traZODone HCL 150 MG TABLET PO SCH (21:16)
[2022-04-14] MEDS: ONDANSETRON 4 MG/2 ML VIAL IV PRN (22:20)
[2022-04-15] MEDS: HYDROmorphone 1 MG/ML SYRINGE IV PRN ×2 (00:40→20:04)
[2022-04-15] MEDS: metroNIDAZOLE 500 MG in PREMIX 1 BAG IV SCH ×4 (00:41→17:23)
[2022-04-15] MEDS: ACETAMINOPHEN 1,000 MG/100 ML BAG IV SCH ×4 (03:24→19:59)
[2022-04-15] MEDS: fentaNYL 100 MCG/2 ML VIAL IV PRN (03:32)
[2022-04-15] MEDS: 0.9 % SODIUM CHLORIDE 1,000 ML IV SCH ×3 (05:21→13:41)
[2022-04-15] MEDS: LEVOTHYROXINE 100 MCG VIAL IV SCH (07:26)
[2022-04-15] MEDS: MEROPENEM 2 GM in 0.9 % SODIUM CHLORIDE 100 ML IV SCH ×3 (07:27→21:33)
[2022-04-15] MEDS: PANTOPRAZOLE 40 MG VIAL IV SCH ×2 (07:27→17:23)
[2022-04-15 07:58] LABS: Basophils # (Auto) 0.06 K/mcL (0.00-0.30); Basophils % (Auto) 0.5 % (0.0-2.0); Eosinophils # (Auto) 0.11 K/mcL (0.00-0.70); Hematocrit 42.9 % (40.1-51.0); Hemoglobin 14.4 g/dL (13.7-17.5); Lymphocytes # (Auto) 1.43 K/mcL (1.50-4.80); Lymphocytes % (Auto) 12.7 % (15.5-49.0); Mean Corpuscular HGB Conc 33.6 g/dL (31.0-36.0); Mean Platelet Volume 9.1 fL (7.4-10.4); Monocytes # (Auto) 0.92 K/mcL (0.10-0.90); Monocytes % (Auto) 8.2 % (1.0-12.0); Neutrophils % (Auto) 75.7 % (38.0-78.0); Platelet Count 298 K/mcL (140-440); RBC 5.05 M/mcL (4.63-6.08); Red Cell Distribution Width 18.1 % (11.5-14.5); WBC 11.3 K/mcL (4.5-11.0)
[2022-04-15 08:24] LABS: ALT/SGPT 30 U/L (<40); AST/SGOT 18 U/L (<40); Albumin 3.2 gm/dL (3.2-5.2); Alkaline Phosphatase 89 U/L (39-117); Bilirubin,Direct < 0.2 mg/dL (0-0.3); Bilirubin,Total 0.6 mg/dL (0.1-1.0); Blood Urea Nitrogen 10 mg/dL (8-23); Calcium 8.9 mg/dL (8.6-10.4); Carbon Dioxide 23 mmol/L (22-30); Chloride 98 mmol/L (96-108); Globulin 3.3 gm/dL (2.2-3.7); Glomerular Filtration Rate 106; Glucose 77 mg/dL (70-105); Lactate Dehydrogenase 230 U/L (135-225); Phosphorous 2.2 mg/dL (2.5-4.5); Triglycerides 162 mg/dL (<150); Uric Acid 5.7 mg/dL (2.5-8.0)
[2022-04-15] MEDS: buPROPion 150 MG TAB.XL.24H PO SCH (08:50)
--- NOTE | 2022-04-15 13:44 | General Surgery Progress Note ---
SUBJECTIVE Subjective Patient information: Note initiated : 04/15/22 at 1:40 pm Service Date, if different from initiated Date: [] Patient: Jason Lewis 62 y/o M admitted on 04/07/22 for Urogenital Male. Chief Complaint: [] Principal diagnosis: Colovesical fistula Interval history: Patient is doing well. He complains of being weak but he has been able to ambulate without difficulty. He has mild shortness of breath after ambulation. He does not have any chest discomfort. He is abdominal pain is controlled with present medication. He has not had flatus so far. Constitutional Vitals: Vital Signs Temp Pulse Resp BP Pulse Ox O2 Del Method O2 Flow Rate 97.6 F 106 H 20 134/92 96 2 04/15/22 12:00 04/15/22 12:00 04/15/22 12:00 04/15/22 12:00 04/15/22 12:00 04/15/22 12:00 04/15/22 12:00 Period Temp Pulse Resp BP Sys/Rios Pulse Ox O2 Del Method O2 Flow Rate Last 24 Hr 97 F-98 F 90-106 16-20 116-149/74-92 93-96 Nasal Cannula-Nasal Cannula 2-2 Intake and Output 04/14/22 04/15/22 04/15/22 21:59 05:59 13:59 Intake Total 1300 1342 400 Output Total 2350 1060 1000 Balance -1050 282 -600 Weight 196 lb Intake & Output: Intake & Output 04/14/22 04/15/22 04/15/22 21:59 05:59 13:59 Intake Total 1300 1342 400 Output Total 2350 1060 1000 Balance -1050 282 -600 Weight 196 lb Intake: IV 1300 1292 400 Sodium Chloride 0.9% 1,000 ml @ 1000 992 150 mls/hr IV .[id number] [facility] Rx#: [id number] Merrem 2 gm In Sodium Chloride 100 100 100 0.9% 100 ml @ 100 mls/hr IV Q8H [facility] Rx#:[id number] Flagyl 500 mg In Premix 1 Bag @ 100 100 200 100 mls/hr IV Q6H [facility] Rx#: [id number] Oral 50 Output: Gastric Drainage 400 250 300 NG/OG 400 250 300 Drainage 10 Right Lower Abdomen JOVI Drain 10 Urine Catheter Amount 1250 800 700 Void Amount 700 Other: Percent of Meal Consumed NPO Urine Appearance Cloudy Clear Clear Uretheral (Lynch) Clear Clear Clear Urine Color Light Anna Dark Yellow Dark Anna Uretheral (Lynch) Dark Yellow Dark Yellow Straw Urine Odor Normal Normal # Bowel Movements 0 0 # of times incontinent of 0 0 Bowels Additional findings Additional findings: Patient is doing well physically. His lungs are clear. Heart rate is 100-110 but regular. Abdomen is soft and nondistended. Incision looks good. Urine is clear. A/P Assessment and plan (1) Acute diverticulitis: Status: Acute (2) Colovesical fistula: Status: Acute Plan Decrease IV to 75 cc/h Check abdominal x-rays in the morning Time Spent With Patient Time: Total time spent is greater than 50% in coordination of care (as documented) at patient's floor/unit and/or counseling patient:
--- NOTE | 2022-04-15 14:38 | XRay Report ---
INDICATION: ILEUS TECHNIQUE: Supine and upright abdomen. COMPARISON: Previous CT scan dated 04/07/2022 FINDINGS:Skin maryan in a vertical midline incision. There is a surgical drain within the pelvis. There is an esophagogastric tube in the distal stomach. Bowel gas pattern is unremarkable and nonobstructive. No pneumoperitoneum. No biliary or portal venous gas. IMPRESSION: 1. Esophagogastric tube in stomach 2. Unremarkable bowel gas pattern Interpreted and Authenticated by: Siddhartha Bojorquez 04/15/22
[2022-04-15] MEDS: METOCLOPRAMIDE 10 MG/2 ML VIAL IV SCH (20:35)
[2022-04-15] MEDS: traZODone HCL 150 MG TABLET PO SCH (21:28)
[2022-04-16] MEDS: metroNIDAZOLE 500 MG in PREMIX 1 BAG IV SCH ×4 (00:37→17:35)
[2022-04-16] MEDS: ACETAMINOPHEN 1,000 MG/100 ML BAG IV SCH ×4 (01:50→21:39)
[2022-04-16] MEDS: METOCLOPRAMIDE 10 MG/2 ML VIAL IV SCH ×4 (01:50→18:39)
[2022-04-16] MEDS: HYDROmorphone 1 MG/ML SYRINGE IV PRN (02:00)
[2022-04-16] MEDS: 0.9 % SODIUM CHLORIDE 1,000 ML IV SCH ×2 (03:08→17:36)
[2022-04-16] MEDS: MEROPENEM 2 GM in 0.9 % SODIUM CHLORIDE 100 ML IV SCH ×3 (05:20→22:19)
[2022-04-16 06:20] LABS: Basophils # (Auto) 0.06 K/mcL (0.00-0.30); Basophils % (Auto) 0.4 % (0.0-2.0); Eosinophils # (Auto) 0.05 K/mcL (0.00-0.70); Eosinophils % (Auto) 0.3 % (0.0-7.0); Hematocrit 45.1 % (40.1-51.0); Lymphocytes # (Auto) 1.34 K/mcL (1.50-4.80); Lymphocytes % (Auto) 8.9 % (15.5-49.0); Mean Cell Volume 84.9 fL (80.0-100.0); Mean Corpuscular HGB Conc 33.3 g/dL (31.0-36.0); Mean Platelet Volume 8.8 fL (7.4-10.4); Monocytes # (Auto) 0.95 K/mcL (0.10-0.90); Monocytes % (Auto) 6.3 % (1.0-12.0); Neutrophils % (Auto) 82.1 % (38.0-78.0); Platelet Count 345 K/mcL (140-440); RBC 5.31 M/mcL (4.63-6.08); Red Cell Distribution Width 17.8 % (11.5-14.5)
[2022-04-16 06:50] LABS: ALT/SGPT 25 U/L (<40); AST/SGOT 18 U/L (<40); Albumin 3.4 gm/dL (3.2-5.2); Alkaline Phosphatase 95 U/L (39-117); Bilirubin,Direct < 0.2 mg/dL (0-0.3); Bilirubin,Total 0.5 mg/dL (0.1-1.0); Blood Urea Nitrogen 14 mg/dL (8-23); Calcium 9.1 mg/dL (8.6-10.4); Carbon Dioxide 22 mmol/L (22-30); Chloride 99 mmol/L (96-108); Globulin 3.4 gm/dL (2.2-3.7); Glomerular Filtration Rate 100; Glucose 82 mg/dL (70-105); Lactate Dehydrogenase 224 U/L (135-225); Phosphorous 2.3 mg/dL (2.5-4.5); Triglycerides 155 mg/dL (<150); Uric Acid 8.3 mg/dL (2.5-8.0)
[2022-04-16] MEDS: LEVOTHYROXINE 100 MCG VIAL IV SCH (09:16)
[2022-04-16] MEDS: buPROPion 150 MG TAB.XL.24H PO SCH ×2 (09:17→18:24)
[2022-04-16] MEDS: PANTOPRAZOLE 40 MG VIAL IV SCH ×2 (09:17→17:36)
--- NOTE | 2022-04-16 09:22 | General Surgery Progress Note ---
SUBJECTIVE Subjective Patient information: Note initiated : 04/16/22 at 9:21 am Service Date, if different from initiated Date: [] Patient: Jason Lewis 62 y/o M admitted on 04/07/22 for Urogenital Male. Chief Complaint: [] Principal diagnosis: Colovesical fistula Interval history: Status post sigmoid colectomy with bladder repair. Patient is doing well. He reports ambulating without difficulty. He does not have any chest discomfort. He is abdominal pain is controlled with present medication. He has not had flatus so far. Afebrile. WBC 15, uric acid 8.3, creatinine 0.7 Pertinent ROS: Denies fevers or chills, denies nausea and emesis. Constitutional Vitals: Vital Signs Temp Pulse Resp BP Pulse Ox O2 Del Method O2 Flow Rate 97.4 F 103 H 16 126/83 95 2 04/16/22 07:48 04/16/22 07:48 04/16/22 07:48 04/16/22 07:48 04/16/22 05:23 04/16/22 05:23 04/16/22 05:23 Period Temp Pulse Resp BP Sys/Rios Pulse Ox O2 Del Method O2 Flow Rate Last 24 Hr 97.4 F-97.6 F 84-120 16-22 116-141/80-93 92-96 Nasal Cannula- Nasal Cannula 2-2 Intake and Output 04/15/22 04/16/22 04/16/22 21:59 05:59 13:59 Intake Total 500 1300 200 Output Total 2115 1610 Balance -1615 -310 200 Weight 183 lb 8 oz Intake & Output: Intake & Output 04/15/22 04/16/22 04/16/22 21:59 05:59 13:59 Intake Total 500 1300 200 Output Total 2115 1610 Balance -1615 -310 200 Weight 183 lb 8 oz Intake: IV 400 1300 200 Sodium Chloride 0.9% 1,000 ml @ 1000 75 mls/hr IV .[id number] [facility] Rx#: [id number] Merrem 2 gm In Sodium Chloride 100 100 100 0.9% 100 ml @ 100 mls/hr IV Q8H [facility] Rx#:[id number] Flagyl 500 mg In Premix 1 Bag @ 100 100 100 100 mls/hr IV Q6H [facility] Rx#: [id number] GI Tube Flush 100 Output: Gastric Drainage 650 700 NG/OG 650 700 Drainage 15 10 Right Lower Abdomen JOVI Drain 15 10 Urine Catheter Amount 1450 900 Other: Meal Dinner Percent of Meal Consumed NPO Feeding Ability Independent Urine Appearance Clear Clear Uretheral (Lynch) Clear Clear Urine Color Straw Dark Yellow Uretheral (Lynch) Dark Yellow Dark Yellow Dark Yellow Urine Odor Normal # Bowel Movements 0 Additional findings Additional findings: Patient is doing well physically. His lungs are clear. Heart rate is 100-110 but regular. Abdomen is soft and nondistended. Incision looks good. Urine is clear. A/P Assessment and plan (1) Colovesical fistula: Assessment and plan: Postop sigmoid resection for [place] vesicular fistula. Patient has not had flatus yet, elevated WC today however afebrile, no fevers no chills. Continue n.p.o., NG tube. We will continue to follow labs and await return of bowel function. Status: Acute Time Spent With Patient Time: Total time spent is greater than 50% in coordination of care (as documented) at patient's floor/unit and/or counseling patient:
[2022-04-16] MEDS ORDERED: FAMOTIDINE/PF 20 MG/2 ML VIAL IV ONE (21:42)
[2022-04-16] MEDS: traZODone HCL 150 MG TABLET PO SCH (22:18)
[2022-04-17] MEDS: METOCLOPRAMIDE 10 MG/2 ML VIAL IV SCH ×4 (00:02→17:46)
[2022-04-17] MEDS: metroNIDAZOLE 500 MG in PREMIX 1 BAG IV SCH ×4 (00:02→17:46)
[2022-04-17] MEDS: ACETAMINOPHEN 1,000 MG/100 ML BAG IV SCH ×4 (01:44→21:23)
[2022-04-17 06:19] LABS: Basophils # (Auto) 0.07 K/mcL (0.00-0.30); Basophils % (Auto) 0.5 % (0.0-2.0); Eosinophils # (Auto) 0.16 K/mcL (0.00-0.70); Eosinophils % (Auto) 1.1 % (0.0-7.0); Hematocrit 44.7 % (40.1-51.0); Hemoglobin 14.6 g/dL (13.7-17.5); Lymphocytes # (Auto) 1.37 K/mcL (1.50-4.80); Lymphocytes % (Auto) 9.6 % (15.5-49.0); Mean Cell Volume 86.5 fL (80.0-100.0); Mean Corpuscular HGB Conc 32.7 g/dL (31.0-36.0); Mean Platelet Volume 8.9 fL (7.4-10.4); Monocytes # (Auto) 1.21 K/mcL (0.10-0.90); Monocytes % (Auto) 8.5 % (1.0-12.0); Neutrophils % (Auto) 78.3 % (38.0-78.0); Platelet Count 368 K/mcL (140-440); RBC 5.17 M/mcL (4.63-6.08); Red Cell Distribution Width 18.4 % (11.5-14.5); WBC 14.2 K/mcL (4.5-11.0)
[2022-04-17 06:45] LABS: Blood Urea Nitrogen 21 mg/dL (8-23); Carbon Dioxide 17 mmol/L (22-30); Chloride 101 mmol/L (96-108); Glomerular Filtration Rate 100; Glucose 81 mg/dL (70-105)
[2022-04-17] MEDS: MEROPENEM 2 GM in 0.9 % SODIUM CHLORIDE 100 ML IV SCH ×3 (07:12→22:20)
[2022-04-17] MEDS ORDERED: traZODone HCL 150 MG TABLET PO SCH (08:10)
[2022-04-17] MEDS: LEVOTHYROXINE 100 MCG VIAL IV SCH (08:39)
[2022-04-17] MEDS: PANTOPRAZOLE 40 MG VIAL IV SCH ×2 (08:40→17:46)
--- NOTE | 2022-04-17 12:27 | General Surgery Progress Note ---
SUBJECTIVE Subjective Patient information: Note initiated : 04/17/22 at 12:23 pm Service Date, if different from initiated Date: [] Patient: Jason Lewis 62 y/o M admitted on 04/07/22 for Urogenital Male. Chief Complaint: [] Principal diagnosis: Colovesical fistula Interval history: Patient continues to do well. He has not had any flatus but his abdomen is soft and nontender. He denies crampy abdominal pain. Electrolytes are normal. White blood count is 14.2 and hemoglobin is 14.6. Constitutional Vitals: Vital Signs Temp Pulse Resp BP Pulse Ox O2 Del Method O2 Flow Rate 98.8 F 100 H 20 153/93 92 0.5 04/17/22 10:33 04/17/22 10:33 04/17/22 10:33 04/17/22 07:09 04/17/22 10:33 04/17/22 10:33 04/16/22 16:00 Period Temp Pulse Resp BP Sys/Rios Pulse Ox O2 Del Method O2 Flow Rate Last 24 Hr 97.4 F-98.8 F 88-105 - 125-155/81-98 92-97 Nasal Cannula- Room Air 0.5 Intake and Output 04/16/22 04/17/22 04/17/22 21:59 05:59 13:59 Intake Total 1300 885 815 Output Total 1350 1135 100 Balance -50 -250 715 Weight 186 lb 6 oz Intake & Output: Intake & Output 04/16/22 04/17/22 04/17/22 21:59 05:59 13:59 Intake Total 1300 885 815 Output Total 1350 1135 100 Balance -50 -250 715 Weight 186 lb 6 oz Intake: IV 1300 885 815 Sodium Chloride 0.9% 1,000 ml @ 1000 485 515 75 mls/hr IV .[id number] [facility] Rx#: [id number] Merrem 2 gm In Sodium Chloride 100 100 100 0.9% 100 ml @ 100 mls/hr IV Q8H [facility] Rx#:[id number] Flagyl 500 mg In Premix 1 Bag @ 100 100 100 100 mls/hr IV Q6H [facility] Rx#: [id number] Oral 0 Output: Gastric Drainage 800 375 100 NG/OG 800 375 100 Drainage 10 Right Lower Abdomen JOVI Drain 10 Urine Catheter Amount 550 750 Other: Urine Appearance Clear Clear Uretheral (Lynch) Clear Clear Clear Urine Color Dark Anna Dark Yellow Uretheral (Lynch) Dark Yellow Dark Yellow Dark Yellow Urine Odor Normal Normal ENT ENT exam: Present mucous membranes moist and normal oropharynx Neck Neck exam: Present full ROM and normal inspection Respiratory Respiratory exam: Present normal respiratory exam and CTAB Cardiovascular Cardiovascular exam: Present normal rate and rhythm, RRR, +S1 and +S2; Absent JVD GI/Abdominal GI/Abdominal exam: Present normal bowel sounds and soft; Absent distended Extremities Exam Extremities exam: Present full ROM, normal inspection and neurovascular intact; Absent pedal edema Neurological Exam Neurological exam: Present oriented X3 and reflexes normal; Absent motor sensory deficit Psychiatric Psychiatric exam: Present anxious, normal affect and normal mood A/P Assessment and plan (1) Acute diverticulitis: Status: Acute (2) Colovesical fistula: Status: Acute Plan Discontinue nasogastric tube Dulcolax suppository daily x2 Trial of clear liquid diet Abdominal x-ray in the morning Time Spent With Patient Time: Total time spent is greater than 50% in coordination of care (as documented) at patient's floor/unit and/or counseling patient:
[2022-04-17] MEDS: 0.9 % SODIUM CHLORIDE 1,000 ML IV SCH ×2 (12:35→23:24)
[2022-04-17] MEDS: BISACODYL 10 MG SUPP.RECT PR SCH (13:41)
[2022-04-17] MEDS: buPROPion 150 MG TAB.XL.24H PO SCH (14:52)
[2022-04-17] MEDS ORDERED: FAMOTIDINE/PF 20 MG/2 ML VIAL IV ONE (20:59)
[2022-04-17] MEDS: traZODone HCL 150 MG TABLET PO SCH (22:37)
[2022-04-18] MEDS: METOCLOPRAMIDE 10 MG/2 ML VIAL IV SCH ×4 (00:31→17:32)
[2022-04-18] MEDS: metroNIDAZOLE 500 MG in PREMIX 1 BAG IV SCH ×4 (02:20→17:32)
[2022-04-18] MEDS: ACETAMINOPHEN 1,000 MG/100 ML BAG IV SCH ×5 (02:27→20:41)
[2022-04-18] MEDS: MEROPENEM 2 GM in 0.9 % SODIUM CHLORIDE 100 ML IV SCH ×3 (05:42→22:51)
[2022-04-18] MEDS: PANTOPRAZOLE 40 MG VIAL IV SCH ×2 (07:07→17:32)
[2022-04-18] MEDS: LEVOTHYROXINE 100 MCG VIAL IV SCH (07:07)
--- NOTE | 2022-04-18 07:50 | XRay Report ---
INDICATION: Follow-up of ileus TECHNIQUE: Supine and upright abdomen. COMPARISON: Previous postoperative examination dated 04/15/2022 FINDINGS:Interval removal of esophagogastric tube. Skin marayn remain present. Surgical drain in the pelvis is unchanged. There is gas and fecal material within the colon. No dilated gas-filled small bowel. There is no pneumoperitoneum. No biliary or portal venous gas. IMPRESSION: 1. Nonspecific bowel gas pattern. No evidence for small bowel obstruction or significant ileus 2. Postoperative findings. Surgical drain in the pelvis is unchanged 3. Status post removal of esophagogastric tube Interpreted and Authenticated by: Siddhartha Bojorquez 04/18/22
[2022-04-18] MEDS: 0.9 % SODIUM CHLORIDE 1,000 ML IV SCH ×2 (09:00→11:46)
[2022-04-18] MEDS: buPROPion 150 MG TAB.XL.24H PO SCH (09:06)
[2022-04-18] MEDS: BISACODYL 10 MG SUPP.RECT PR SCH (09:50)
--- NOTE | 2022-04-18 13:00 | General Surgery Progress Note ---
SUBJECTIVE Subjective Patient information: Note initiated : 04/18/22 at 12:56 pm Service Date, if different from initiated Date: [] Patient: Jason Lewis 62 y/o M admitted on 04/07/22 for Urogenital Male. Chief Complaint: [] Principal diagnosis: Colovesical fistula Interval history: Patient is doing well. He has had 2 large bowel movements and is passing flatus. He is tolerating full liquid diet. His abdominal pain is decreased. Abdominal x-ray shows gas in the colon and a small amount of gas in the small bowel but no major dilation or evidence of obstruction. Urine output is good and the urine is clear. Constitutional Vitals: Vital Signs Temp Pulse Resp BP Pulse Ox O2 Del Method O2 Flow Rate 98.2 F 100 H 20 146/90 94 0.5 04/18/22 08:00 04/18/22 08:00 04/18/22 08:00 04/18/22 08:00 04/18/22 08:00 04/18/22 08:00 04/16/22 16:00 Period Temp Pulse Resp BP Sys/Rios Pulse Ox O2 Del Method O2 Flow Rate Last 24 Hr 97.3 F-98.2 F 95-103 20-24 122-146/75-98 94-96 Room Air-Room Air Intake and Output 04/17/22 04/18/22 04/18/22 21:59 05:59 13:59 Intake Total 356 056 4243 Output Total 705 703 Balance -185 -53 1840 Weight 194 lb 6.4 oz Intake & Output: Intake & Output 04/17/22 04/18/22 04/18/22 21:59 05:59 13:59 Intake Total 410 810 9632 Output Total 705 703 Balance -185 -53 1840 Weight 194 lb 6.4 oz Intake: IV 615 698 6523 Sodium Chloride 0.9% 1,000 ml @ 1000 75 mls/hr IV .[id number] [facility] Rx#: [id number] Merrem 2 gm In Sodium Chloride 100 100 100 0.9% 100 ml @ 100 mls/hr IV Q8H [facility] Rx#:[id number] Flagyl 500 mg In Premix 1 Bag @ 200 100 100 100 mls/hr IV Q6H [facility] Rx#: [id number] Oral 120 250 540 Output: Drainage 5 Right Lower Abdomen JOVI Drain 5 Drainage 3 Right Lower Abdomen JOVI Drain 3 Urine Catheter Amount 700 700 Other: Meal Breakfast Percent of Meal Consumed 100% Feeding Ability Assist with Tray Set Up Urine Appearance Sediment Clear Uretheral (Lynch) Clear Clear Urine Color Dark Anna Dark Yellow Light Anna Uretheral (Lynch) Dark Yellow Dark Yellow Urine Odor Strong Stool Size Moderate Stool Color Brown Stool Consistency Liquid ENT ENT exam: Present mucous membranes moist and normal oropharynx Neck Neck exam: Present full ROM and normal inspection Respiratory Respiratory exam: Present normal respiratory exam and CTAB Cardiovascular Cardiovascular exam: Present normal rate and rhythm, RRR, +S1 and +S2; Absent JVD GI/Abdominal GI/Abdominal exam: Present normal bowel sounds and soft; Absent distended Extremities Exam Extremities exam: Present full ROM, normal inspection and neurovascular intact Neurological Exam Neurological exam: Present oriented X3 and reflexes normal; Absent motor sensory deficit Psychiatric Psychiatric exam: Present normal affect and normal mood Skin Skin exam: Absent petechiae or rash A/P Assessment and plan (1) Acute diverticulitis: Status: Acute (2) Colovesical fistula: Status: Acute Plan Check CBC and inpatient panel DC IV infusion Continue antibiotics Switch to oral medications Probable discharge home tomorrow Time Spent With Patient Time: Total time spent is greater than 50% in coordination of care (as documented) at patient's floor/unit and/or counseling patient:
[2022-04-18 14:10] LABS: ALT/SGPT 28 U/L (<40); AST/SGOT 24 U/L (<40); Albumin 3.3 gm/dL (3.2-5.2); Alkaline Phosphatase 98 U/L (39-117); Bilirubin,Direct < 0.2 mg/dL (0-0.3); Bilirubin,Total 0.5 mg/dL (0.1-1.0); Blood Urea Nitrogen 16 mg/dL (8-23); Calcium 9.3 mg/dL (8.6-10.4); Carbon Dioxide 21 mmol/L (22-30); Chloride 102 mmol/L (96-108); Globulin 3.3 gm/dL (2.2-3.7); Glomerular Filtration Rate 100; Glucose 110 mg/dL (70-105); Lactate Dehydrogenase 273 U/L (135-225); Phosphorous 1.8 mg/dL (2.5-4.5); Triglycerides 169 mg/dL (<150); Uric Acid 5.9 mg/dL (2.5-8.0)
[2022-04-18] MEDS: traZODone HCL 150 MG TABLET PO SCH (22:10)
[2022-04-19] MEDS: metroNIDAZOLE 500 MG in PREMIX 1 BAG IV SCH ×3 (00:31→13:11)
[2022-04-19] MEDS: METOCLOPRAMIDE 10 MG/2 ML VIAL IV SCH ×3 (00:38→13:12)
[2022-04-19] MEDS: ACETAMINOPHEN 1,000 MG/100 ML BAG IV SCH ×3 (02:41→14:06)
[2022-04-19] MEDS: MEROPENEM 2 GM in 0.9 % SODIUM CHLORIDE 100 ML IV SCH ×2 (05:50→14:06)
[2022-04-19 06:38] LABS: Basophils # (Auto) 0.08 K/mcL (0.00-0.30); Basophils % (Auto) 0.8 % (0.0-2.0); Eosinophils # (Auto) 0.24 K/mcL (0.00-0.70); Eosinophils % (Auto) 2.3 % (0.0-7.0); Hematocrit 39.8 % (40.1-51.0); Hemoglobin 13.5 g/dL (13.7-17.5); Lymphocytes # (Auto) 1.58 K/mcL (1.50-4.80); Lymphocytes % (Auto) 14.8 % (15.5-49.0); Mean Cell Volume 84.3 fL (80.0-100.0); Mean Corpuscular HGB Conc 33.9 g/dL (31.0-36.0); Monocytes # (Auto) 1.27 K/mcL (0.10-0.90); Monocytes % (Auto) 11.9 % (1.0-12.0); Neutrophils % (Auto) 69.1 % (38.0-78.0); Platelet Count 323 K/mcL (140-440); RBC 4.72 M/mcL (4.63-6.08); WBC 10.7 K/mcL (4.5-11.0)
--- NOTE | 2022-04-19 06:40 | XRay Report ---
INDICATION: Follow-up of ileus TECHNIQUE: Supine and upright abdomen. COMPARISON: Previous examinations dated 04/18/2022, 04/15/2022 FINDINGS:Surgical drain remains present within the pelvis, unchanged. There is gas within the colon. No dilated gas-filled small bowel. No mechanical small bowel obstruction. Bowel gas pattern is unremarkable. No biliary or portal venous gas. IMPRESSION: Nonspecific and nonobstructive gas pattern Interpreted and Authenticated by: Siddhartha Bojorquez 04/19/22
[2022-04-19] MEDS: LEVOTHYROXINE 100 MCG VIAL IV SCH (06:54)
[2022-04-19] MEDS: PANTOPRAZOLE 40 MG VIAL IV SCH (06:54)
[2022-04-19] MEDS: buPROPion 150 MG TAB.XL.24H PO SCH (08:43)
--- NOTE | 2022-04-19 12:20 | Discharge Summary ---
Discharge Provider Provider IMPORTANT FOLLOW-UP INFORMATION FOR PCP: Patient information: Note initiated : 04/19/22 at 12:17 pm Service Date, if different from initiated Date: [] Patient: Jason Lewis 62 y/o M admitted on 04/07/22 for Urogenital Male. Chief Complaint: [] Date of admission: 04/07/22 22:26 Discharge date: 04/19/22 Primary care physician: Lemuel Larkin MD Admitting clinician: Uziel Ramirez Attending physician on admission: Uziel Ramirez Consults: 04/07/22 Consult to Physician [CONS] Stat Comment: Consulting Provider: Uziel Ramirez Reason For Exam: Physician to Consult Attending physician on discharge: Uziel Ramirez Discharging clinician: Uziel Ramirez COURSE Hospital Course Hospital course: 62-year-old male with history of passage of gas and fecal matter through his urinary tract for greater than 1 week. He presented to the emergency room with these complaints and findings of urinary tract infection and sepsis. CT was compatible with diverticulitis with fecal fistula from sigmoid colon to bladder. Patient was treated with IV antibiotics x5 days and then underwent segmental sigmoid colectomy with resection of bladder fistula and primary closure of bladder. He has done well. He had slow return of intestinal function but is now tolerating full liquid diet with Ensure 3 times daily. He is afebrile and his white blood count is 10.7. He has not had any bleeding. Electrolytes are normal. Patient is stable for discharge home. He will maintain his Lynch catheter for another week and will receive 5 more days of antibiotics. Discharge diagnosis: Acute diverticulitis with perforation Secondary discharge diagnosis: Colovesical fistula Urinary tract infection with sepsis Obstructive sleep apnea Hypertension Reason for admission: Colovesical fistula with sepsis Procedures: Segmental sigmoid colectomy with resection of bladder fistula and primary closure Pertinent studies/significant findings: CT of abdomen and pelvis Complications: 9 Time Spent with Patient Time attestation: Total time spent providing and/or coordinating discharge services: Time spent: Greater than 30 minutes Physical Examination Vital Signs Vital signs: Temp Pulse Resp BP Pulse Ox O2 Del Method O2 Flow Rate 98.5 F 75 22 132/87 94 0.5 04/19/22 08:00 04/19/22 08:00 04/19/22 08:00 04/19/22 08:00 04/19/22 08:00 04/19/22 08:00 04/16/22 16:00 Eyes Eye exam: PERRL and normal ocular movement ENT ENT exam: normal nares, no hearing loss and no congestion Head Head exam IM: Present atraumatic, normal inspection and normocephalic Neck Neck exam: no masses, no bruits, trachea midline, no lymphadenopathy and no venous distension Cardiovascular Cardiovascular exam IM: Present normal rate and rhythm, RRR, +S1, +S2 and tachycardia; Absent JVD Respiratory Respiratory exam: normal expansion, normal respiratory effort, clear to percussion and clear to auscultation Abdomen Abdomen: Present soft, tender (Mild tenderness in the midline incision), bowel sounds and surgical scars Integumentary Integumentary: Present no growths, no abnormal pigmentation and other (Jacket involving perineum) Neurologic Neurologic: Present normal coordination and normal sensation Musculoskeletal Musculoskeletal: Present normal gait and normal posture Psychiatric Psychiatric: Present oriented to time, oriented to person, oriented to place, speech is normal and memory intact Discharge Plan Patient/Caregiver Discharge Instructions Activity: increase activity as tolerated and as instructed Diet: Full Liquid Prescriptions: New oxycodone-acetaminophen [Endocet] 10-325 mg tablet 1 tab PO Q4H PRN (Reason: Pain) Qty: 40 0RF cefuroxime axetil 500 mg tablet 500 mg PO BID Qty: 20 0RF metoclopramide HCl 10 mg tablet 10 mg PO Q6H 7 Days Qty: 28 0RF polyethylene glycol 3350 [Miralax] 17 gram/dose powder 17 g PO BID Qty: 238 1RF Continued (DME) CPAP unit and supplies Qty: 1 0RF Rx Instructions: As directed sildenafil [Viagra] 100 mg tablet 100 mg PO DIRECTED Qty: 6 12RF metformin 500 mg tablet 500 mg PO QAM Qty: 90 1RF levothyroxine [Synthroid] 50 mcg tablet 50 mcg PO QAM Qty: 90 1RF doxycycline hyclate 100 mg tablet 100 mg PO QAM Qty: 30 3RF hydrochlorothiazide 25 mg tablet 25 mg PO QAM Qty: 90 1RF bupropion HCl 150 mg tablet extended release 24 hr 150 mg PO QAM Qty: 90 1RF meloxicam 15 mg tablet 15 mg PO QAM Qty: 90 0RF Rx Instructions: take with food trazodone 100 mg tablet 100 mg PO QHS Qty: 30 0RF omega-3 acid ethyl esters 1 gram capsule 2 cap PO BID Qty: 120 1RF lansoprazole 30 mg capsule,delayed release(DR/EC) 30 mg PO BID Cristofer Multivitamin For Men 200-175-250 mcg Tablet 1 tab PO QAM allopurinol 300 mg tablet 300 mg PO QAM Follow Up Plan Follow up with: Lemuel Larkin MD [Primary Care Provider] - Uziel Ramirez MD [Physician] - (Follow-up in office 10 days) Patient Disposition: Home, Self-Care Prognosis: Good Rehab Potential: Good I certify that the patient requires SNF services: No Overall status at discharge: patient is progressing back to baseline Discharge Orders: Discharge Order (Routine); Ordered 04/19/22 Ordered By: Uziel Ramirez Pending Pending Pending: Resuscitation Status Resuscitate (Full Code) Diet Full Liquid Diet Start SunApr 18 0810 Bupropion HCl (Bupropion 150 Mg Tab.Xl.24h) 150 mg PO DAILY [facility] Last Admin: 04/19/22 08:43 Dose: 150 mg Documented By: Admin: 04/18/22 09:06 Dose: 150 mg Documented By: Admin: 04/17/22 14:52 Dose: Not Given Documented By: Admin: 04/16/22 18:24 Dose: Not Given Documented By: Admin: 04/15/22 08:50 Dose: 150 mg Documented By: Admin: 04/14/22 07:26 Dose: Not Given Documented By: Admin: 04/13/22 08:35 Dose: Not Given Documented By: ADELE Fentanyl (Fentanyl 100 Mcg/2 Ml Vial) 25 mcg IV Q2HP PRN; Protocol PRN Reason: Per Pain Protocol Last Admin: 04/15/22 03:32 Dose: 25 mcg Documented By: Admin: 04/14/22 05:04 Dose: 25 mcg Documented By: Admin: 04/12/22 18:40 Dose: 25 mcg Documented By: Admin: 04/09/22 22:43 Dose: 25 mcg Documented By: Admin: 04/09/22 15:14 Dose: 25 mcg Documented By: Admin: 04/09/22 04:43 Dose: 25 mcg Documented By: Admin: 04/08/22 17:34 Dose: 25 mcg Documented By: ENIO Hydromorphone HCl (Hydromorphone 1 Mg/Ml Syringe) 1 mg IV Q2HP PRN; Protocol PRN Reason: Per Pain Protocol Last Admin: 04/16/22 02:00 Dose: 1 mg Documented By: Admin: 04/15/22 20:04 Dose: 1 mg Documented By: Admin: 04/15/22 00:40 Dose: 1 mg Documented By: Admin: 04/14/22 22:13 Dose: 1 mg Documented By: Admin: 04/14/22 15:55 Dose: 1 mg Documented By: Admin: 04/14/22 11:45 Dose: 1 mg Documented By: Admin: 04/14/22 07:43 Dose: 1 mg Documented By: Admin: 04/14/22 04:22 Dose: 1 mg Documented By: Admin: 04/13/22 21:40 Dose: 1 mg Documented By: Admin: 04/13/22 18:25 Dose: 1 mg Documented By: Admin: 04/13/22 16:21 Dose: 1 mg Documented By: Admin: 04/13/22 12:20 Dose: 1 mg Documented By: Admin: 04/13/22 08:25 Dose: 1 mg Documented By: Admin: 04/13/22 04:46 Dose: 1 mg Documented By: Admin: 04/12/22 23:24 Dose: 1 mg Documented By: Admin: 04/12/22 20:50 Dose: 1 mg Documented By: Admin: 04/12/22 16:18 Dose: 1 mg Documented By: KO Metronidazole 500 mg/ Premix 100 mls @ 100 mls/hr IV Q6H [facility]; Protocol Last Infusion: 04/19/22 07:55 Dose: 0 mls/hr Documented By: Admin: 04/19/22 06:55 Dose: 100 mls/hr Documented By: Infusion: 04/19/22 01:37 Dose: 0 mls/hr Documented By: Admin: 04/19/22 00:31 Dose: 100 mls/hr Documented By: Infusion: 04/18/22 18:53 Dose: 0 mls/hr Documented By: Admin: 04/18/22 17:32 Dose: 100 mls/hr Documented By: Infusion: 04/18/22 13:12 Dose: 0 mls/hr Documented By: Admin: 04/18/22 12:12 Dose: 100 mls/hr Documented By: Infusion: 04/18/22 08:10 Dose: 0 mls/hr Documented By: Admin: 04/18/22 07:07 Dose: 100 mls/hr Documented By: Infusion: 04/18/22 03:25 Dose: 0 mls/hr Documented By: Admin: 04/18/22 02:20 Dose: 100 mls/hr Documented By: Infusion: 04/17/22 19:55 Dose: 0 mls/hr Documented By: Admin: 04/17/22 17:46 Dose: 100 mls/hr Documented By: Infusion: 04/17/22 15:01 Dose: 100 mls/hr Documented By: Admin: 04/17/22 12:36 Dose: 100 mls/hr Documented By: Infusion: 04/17/22 07:26 Dose: 100 mls/hr Documented By: Admin: 04/17/22 05:54 Dose: 100 mls/hr Documented By: Infusion: 04/17/22 01:05 Dose: 0 mls/hr Documented By: Admin: 04/17/22 00:02 Dose: 100 mls/hr Documented By: Infusion: 04/16/22 18:35 Dose: 0 mls/hr Documented By: Admin: 04/16/22 17:35 Dose: 100 mls/hr Documented By: Infusion: 04/16/22 13:21 Dose: 0 mls/hr Documented By: Admin: 04/16/22 12:21 Dose: 100 mls/hr Documented By: Infusion: 04/16/22 09:19 Dose: 0 mls/hr Documented By: Admin: 04/16/22 05:18 Dose: 100 mls/hr Documented By: Infusion: 04/16/22 01:37 Dose: 0 mls/hr Documented By: Admin: 04/16/22 00:37 Dose: 100 mls/hr Documented By: Infusion: 04/15/22 18:23 Dose: 0 mls/hr Documented By: Admin: 04/15/22 17:23 Dose: 100 mls/hr Documented By: Infusion: 04/15/22 13:01 Dose: 0 mls/hr Documented By: Admin: 04/15/22 11:56 Dose: 100 mls/hr Documented By: Infusion: 04/15/22 06:46 Dose: 0 mls/hr Documented By: Admin: 04/15/22 05:22 Dose: 75 mls/hr Documented By: Infusion: 04/15/22 02:41 Dose: 0 mls/hr Documented By: Admin: 04/15/22 00:41 Dose: 50 mls/hr Documented By: Infusion: 04/14/22 18:30 Dose: 0 mls/hr Documented By: Admin: 04/14/22 17:29 Dose: 100 mls/hr Documented By: [email or web address] Infusion: 04/14/22 12:41 Dose: 0 mls/hr Documented By: [email or web address] Admin: 04/14/22 11:29 Dose: 100 mls/hr Documented By: [email or web address] Infusion: 04/14/22 06:54 Dose: 0 mls/hr Documented By: [email or web address] Admin: 04/14/22 05:43 Dose: 100 mls/hr Documented By: Infusion: 04/14/22 01:58 Dose: 0 mls/hr Documented By: Admin: 04/14/22 00:19 Dose: 100 mls/hr Documented By: [email or web address] Infusion: 04/13/22 19:39 Dose: 0 mls/hr Documented By: Admin: 04/13/22 18:29 Dose: 100 mls/hr Documented By: Infusion: 04/13/22 13:20 Dose: 0 mls/hr Documented By: Admin: 04/13/22 12:05 Dose: 100 mls/hr Documented By: [email or web address] Infusion: 04/13/22 07:24 Dose: 0 mls/hr Documented By: [email or web address] Admin: 04/13/22 06:02 Dose: 100 mls/hr Documented By: Infusion: 04/13/22 01:00 Dose: 0 mls/hr Documented By: Admin: 04/12/22 23:55 Dose: 100 mls/hr Documented By: Infusion: 04/12/22 18:26 Dose: 0 mls/hr Documented By: Admin: 04/12/22 17:09 Dose: 100 mls/hr Documented By: Admin: 04/12/22 11:55 Dose: Not Given Documented By: Infusion: 04/12/22 10:40 Dose: 0 mls/hr Documented By: Admin: 04/12/22 06:14 Dose: 100 mls/hr Documented By: Infusion: 04/12/22 00:42 Dose: 0 mls/hr Documented By: Admin: 04/11/22 23:40 Dose: 100 mls/hr Documented By: Infusion: 04/11/22 18:22 Dose: 0 mls/hr Documented By: Admin: 04/11/22 17:03 Dose: 100 mls/hr Documented By: Infusion: 04/11/22 13:21 Dose: 100 mls/hr Documented By: Admin: 04/11/22 12:21 Dose: 100 mls/hr Documented By: Infusion: 04/11/22 06:53 Dose: 100 mls/hr Documented By: Admin: 04/11/22 05:53 Dose: 100 mls/hr Documented By: [email or web address] Infusion: 04/11/22 00:52 Dose: 0 mls/hr Documented By: Admin: 04/10/22 23:42 Dose: 100 mls/hr Documented By: Infusion: 04/10/22 19:25 Dose: 0 mls/hr Documented By: Admin: 04/10/22 17:55 Dose: 100 mls/hr Documented By: Infusion: 04/10/22 13:20 Dose: 0 mls/hr Documented By: Admin: 04/10/22 11:57 Dose: 100 mls/hr Documented By: Infusion: 04/10/22 07:06 Dose: 0 mls/hr Documented By: Admin: 04/10/22 05:56 Dose: 100 mls/hr Documented By: Infusion: 04/10/22 03:08 Dose: 0 mls/hr Documented By: Admin: 04/10/22 00:09 Dose: 100 mls/hr Documented By: Infusion: 04/09/22 18:57 Dose: 0 mls/hr Documented By: Admin: 04/09/22 17:29 Dose: 100 mls/hr Documented By: Infusion: 04/09/22 13:47 Dose: 0 mls/hr Documented By: Admin: 04/09/22 12:03 Dose: 200 mls/hr Documented By: Infusion: 04/09/22 06:56 Dose: 0 mls/hr Documented By: Admin: 04/09/22 05:49 Dose: 100 mls/hr Documented By: Infusion: 04/09/22 02:24 Dose: 0 mls/hr Documented By: Admin: 04/09/22 01:13 Dose: 100 mls/hr Documented By: Infusion: 04/08/22 19:36 Dose: 0 mls/hr Documented By: Admin: 04/08/22 18:34 Dose: 100 mls/hr Documented By: Admin: 04/08/22 14:14 Dose: Not Given Documented By: Admin: 04/08/22 12:41 Dose: Not Given Documented By: Infusion: 04/08/22 11:18 Dose: 0 mls/hr Documented By: Admin: 04/08/22 09:58 Dose: 100 mls/hr Documented By: Infusion: 04/08/22 08:26 Dose: 0 mls/hr Documented By: Admin: 04/08/22 05:46 Dose: 100 mls/hr Documented By: Infusion: 04/08/22 00:14 Dose: 0 mls/hr Documented By: Admin: 04/07/22 23:14 Dose: 100 mls/hr Documented By: BJORN Meropenem 2 gm/ Sodium (Chloride) 100 mls @ 100 mls/hr IV Q8H [facility]; Protocol Last Infusion: 04/19/22 06:50 Dose: 0 mls/hr Documented By: Admin: 04/19/22 05:50 Dose: 100 mls/hr Documented By: Infusion: 04/19/22 00:39 Dose: 0 mls/hr Documented By: Admin: 04/18/22 22:51 Dose: 100 mls/hr Documented By: Infusion: 04/18/22 15:56 Dose: 0 mls/hr Documented By: Admin: 04/18/22 14:47 Dose: 100 mls/hr Documented By: Infusion: 04/18/22 06:45 Dose: 0 mls/hr Documented By: Admin: 04/18/22 05:42 Dose: 100 mls/hr Documented By: Infusion: 04/17/22 23:21 Dose: 0 mls/hr Documented By: Admin: 04/17/22 22:20 Dose: 100 mls/hr Documented By: Infusion: 04/17/22 17:46 Dose: 100 mls/hr Documented By: Admin: 04/17/22 14:52 Dose: 100 mls/hr Documented By: Infusion: 04/17/22 09:14 Dose: 100 mls/hr Documented By: Admin: 04/17/22 07:12 Dose: 100 mls/hr Documented By: Infusion: 04/16/22 23:30 Dose: 0 mls/hr Documented By: Admin: 04/16/22 22:19 Dose: 100 mls/hr Documented By: [email or web address] Infusion: 04/16/22 17:04 Dose: 0 mls/hr Documented By: Admin: 04/16/22 15:41 Dose: 100 mls/hr Documented By: Infusion: 04/16/22 09:19 Dose: 0 mls/hr Documented By: Admin: 04/16/22 05:20 Dose: 100 mls/hr Documented By: Infusion: 04/15/22 22:33 Dose: 0 mls/hr Documented By: Admin: 04/15/22 21:33 Dose: 100 mls/hr Documented By: Infusion: 04/15/22 16:28 Dose: 0 mls/hr Documented By: Admin: 04/15/22 14:23 Dose: 100 mls/hr Documented By: Infusion: 04/15/22 09:40 Dose: 0 mls/hr Documented By: Admin: 04/15/22 07:27 Dose: 100 mls/hr Documented By: Infusion: 04/15/22 00:36 Dose: 0 mls/hr Documented By: Infusion: 04/14/22 22:14 Dose: 50 mls/hr Documented By: Admin: 04/14/22 22:13 Dose: 100 mls/hr Documented By: Infusion: 04/14/22 14:57 Dose: 0 mls/hr Documented By: [email or web address] Admin: 04/14/22 13:45 Dose: 100 mls/hr Documented By: [email or web address] Infusion: 04/14/22 06:54 Dose: 0 mls/hr Documented By: [email or web address] Admin: 04/14/22 05:43 Dose: 100 mls/hr Documented By: Infusion: 04/13/22 23:16 Dose: 0 mls/hr Documented By: Admin: 04/13/22 21:41 Dose: 100 mls/hr Documented By: [email or web address] Infusion: 04/13/22 17:17 Dose: 0 mls/hr Documented By: [email or web address] Admin: 04/13/22 14:09 Dose: 100 mls/hr Documented By: [email or web address] Infusion: 04/13/22 08:13 Dose: 0 mls/hr Documented By: [email or web address] Admin: 04/13/22 06:02 Dose: 100 mls/hr Documented By: Infusion: 04/12/22 23:58 Dose: 0 mls/hr Documented By: Admin: 04/12/22 22:23 Dose: 100 mls/hr Documented By: Admin: 04/12/22 14:23 Dose: Not Given Documented By: Infusion: 04/12/22 10:40 Dose: 0 mls/hr Documented By: Admin: 04/12/22 06:14 Dose: 100 mls/hr Documented By: Infusion: 04/11/22 22:20 Dose: 0 mls/hr Documented By: Admin: 04/11/22 21:15 Dose: 100 mls/hr Documented By: Infusion: 04/11/22 18:21 Dose: 0 mls/hr Documented By: Admin: 04/11/22 14:29 Dose: 100 mls/hr Documented By: Infusion: 04/11/22 06:53 Dose: 100 mls/hr Documented By: Admin: 04/11/22 05:53 Dose: 100 mls/hr Documented By: Infusion: 04/10/22 22:50 Dose: 0 mls/hr Documented By: Admin: 04/10/22 21:34 Dose: 100 mls/hr Documented By: Infusion: 04/10/22 15:42 Dose: 0 mls/hr Documented By: Admin: 04/10/22 14:26 Dose: 100 mls/hr Documented By: Infusion: 04/10/22 07:07 Dose: 0 mls/hr Documented By: Admin: 04/10/22 05:56 Dose: 100 mls/hr Documented By: Infusion: 04/09/22 23:13 Dose: 0 mls/hr Documented By: Admin: 04/09/22 21:43 Dose: 100 mls/hr Documented By: Infusion: 04/09/22 15:38 Dose: 0 mls/hr Documented By: Admin: 04/09/22 13:59 Dose: 100 mls/hr Documented By: Infusion: 04/09/22 06:56 Dose: 0 mls/hr Documented By: Admin: 04/09/22 05:49 Dose: 100 mls/hr Documented By: Infusion: 04/08/22 23:15 Dose: 0 mls/hr Documented By: Admin: 04/08/22 22:01 Dose: 100 mls/hr Documented By: Infusion: 04/08/22 15:12 Dose: 0 mls/hr Documented By: Admin: 04/08/22 14:24 Dose: 100 mls/hr Documented By: ENIO Acetaminophen (Ofirmev) 1,000 mg in 100 mls @ 200 mls/hr IV Q6H [facility]; Protocol Last Infusion: 04/19/22 08:35 Dose: 0 mls/hr Documented By: Admin: 04/19/22 08:01 Dose: 200 mls/hr Documented By: Infusion: 04/19/22 03:47 Dose: 0 mls/hr Documented By: Admin: 04/19/22 02:41 Dose: 200 mls/hr Documented By: Infusion: 04/18/22 21:20 Dose: 0 mls/hr Documented By: Admin: 04/18/22 20:41 Dose: 200 mls/hr Documented By: Infusion: 04/18/22 15:00 Dose: 0 mls/hr Documented By: Admin: 04/18/22 14:12 Dose: 200 mls/hr Documented By: Infusion: 04/18/22 08:45 Dose: 0 mls/hr Documented By: Admin: 04/18/22 08:12 Dose: 200 mls/hr Documented By: Infusion: 04/18/22 04:37 Dose: 0 mls/hr Documented By: Admin: 04/18/22 04:07 Dose: 200 mls/hr Documented By: Infusion: 04/17/22 22:20 Dose: 0 mls/hr Documented By: Admin: 04/17/22 21:23 Dose: 200 mls/hr Documented By: Infusion: 04/17/22 17:39 Dose: 200 mls/hr Documented By: Admin: 04/17/22 16:21 Dose: 200 mls/hr Documented By: Infusion: 04/17/22 10:49 Dose: 200 mls/hr Documented By: Admin: 04/17/22 10:17 Dose: 200 mls/hr Documented By: Infusion: 04/17/22 02:15 Dose: 0 mls/hr Documented By: Admin: 04/17/22 01:44 Dose: 200 mls/hr Documented By: Infusion: 04/16/22 22:19 Dose: 0 mls/hr Documented By: Admin: 04/16/22 21:39 Dose: 200 mls/hr Documented By: Infusion: 04/16/22 15:10 Dose: 0 mls/hr Documented By: Admin: 04/16/22 14:40 Dose: 200 mls/hr Documented By: Infusion: 04/16/22 09:50 Dose: 0 mls/hr Documented By: Admin: 04/16/22 09:18 Dose: 200 mls/hr Documented By: Infusion: 04/16/22 02:20 Dose: 0 mls/hr Documented By: Admin: 04/16/22 01:50 Dose: 200 mls/hr Documented By: ARIANNA Levothyroxine Sodium (Levothyroxine 100 Mcg Vial) 50 mcg IV [facility] Admin: 04/19/22 06:54 Dose: 50 mcg Documented By: Admin: 04/18/22 07:07 Dose: 50 mcg Documented By: Admin: 04/17/22 08:39 Dose: 50 mcg Documented By: Admin: 04/16/22 09:16 Dose: 50 mcg Documented By: Admin: 04/15/22 07:26 Dose: 50 mcg Documented By: Admin: 04/14/22 07:35 Dose: 50 mcg Documented By: Admin: 04/13/22 08:12 Dose: 50 mcg Documented By: ADELE Metoclopramide HCl (Metoclopramide 10 Mg/2 Ml Vial) 10 mg IV Q6 [facility] Last Admin: 04/19/22 05:56 Dose: 10 mg Documented By: Admin: 04/19/22 00:38 Dose: 10 mg Documented By: Admin: 04/18/22 17:32 Dose: 10 mg Documented By: Admin: 04/18/22 12:12 Dose: 10 mg Documented By: Admin: 04/18/22 05:43 Dose: 10 mg Documented By: Admin: 04/18/22 00:31 Dose: 10 mg Documented By: Admin: 04/17/22 17:46 Dose: 10 mg Documented By: Admin: 04/17/22 13:41 Dose: 10 mg Documented By: Admin: 04/17/22 06:01 Dose: 10 mg Documented By: Admin: 04/17/22 00:02 Dose: 10 mg Documented By: Admin: 04/16/22 18:39 Dose: Not Given Documented By: Admin: 04/16/22 14:39 Dose: 10 mg Documented By: Admin: 04/16/22 09:17 Dose: 10 mg Documented By: Admin: 04/16/22 01:50 Dose: 10 mg Documented By: Admin: 04/15/22 20:35 Dose: 10 mg Documented By: ARIANNA Ondansetron HCl (Ondansetron 4 Mg/2 Ml Vial) 4 mg IV Q6HP PRN PRN Reason: Nausea And Vomiting Last Admin: 04/14/22 22:20 Dose: 4 mg Documented By: Admin: 04/12/22 18:41 Dose: 4 mg Documented By: Admin: 04/11/22 11:34 Dose: 4 mg Documented By: [email or web address] Admin: 04/10/22 19:40 Dose: 4 mg Documented By: Admin: 04/08/22 07:59 Dose: 4 mg Documented By: ENIO Pantoprazole Sodium (Pantoprazole 40 Mg Vial) 40 mg IV BIDAC [facility] Admin: 04/19/22 06:54 Dose: 40 mg Documented By: Admin: 04/18/22 17:32 Dose: 40 mg Documented By: Admin: 04/18/22 07:07 Dose: 40 mg Documented By: Admin: 04/17/22 17:46 Dose: 40 mg Documented By: Admin: 04/17/22 08:40 Dose: 40 mg Documented By: Admin: 04/16/22 17:36 Dose: 40 mg Documented By: Admin: 04/16/22 09:17 Dose: 40 mg Documented By: Admin: 04/15/22 17:23 Dose: 40 mg Documented By: Admin: 04/15/22 07:27 Dose: 40 mg Documented By: Admin: 04/14/22 17:29 Dose: 40 mg Documented By: Admin: 04/14/22 07:35 Dose: 40 mg Documented By: Admin: 04/13/22 17:17 Dose: 40 mg Documented By: Admin: 04/13/22 08:12 Dose: 40 mg Documented By: Admin: 04/12/22 18:41 Dose: 40 mg Documented By: JANN Trazodone HCl (Trazodone Hcl 150 Mg Tablet) 150 mg PO [facility] Admin: 04/18/22 22:10 Dose: 150 mg Documented By: Admin: 04/17/22 22:37 Dose: 150 mg Documented By: Admin: 04/16/22 22:18 Dose: Not Given Documented By: Admin: 04/15/22 21:28 Dose: Not Given Documented By: Admin: 04/14/22 21:16 Dose: Not Given Documented By: Admin: 04/13/22 21:41 Dose: 150 mg Documented By: Admin: 04/12/22 20:50 Dose: 150 mg Documented By: JANN Shift Summary 04/19/22 04:42 Shift Summary by Annika Li Primary Diagnosis: Sigmoid-Bladder Fistula - 2 wk history of passage of air and fecal matter through his penis with associated suprapubic pain and pain in the left flank Registration Status: Inpatient Day of Hospitalization: 04/07 Date of Surgery: 04/12 - L Colectomy w/ Bladder Repair Pertinent Medical Dx/Issue(s): Long-term Hx anorexia, depression, Diverticulosis/itis, Hiatal hernia w/ GERD, IBS, Atrophy of pancreas, L rotator cuff repair, BPH w/ obstruction, DDD, hypothyroid, HTN. Vital Signs with Trends: HR elevated all other VSS on RA Neuro: A&O x4 Ambulation status: Up SBA FWW w/GB. Ambulated 560ft in the hallways this shift Meds: Scheduled Ofirmev; Reglan IV; No PRN pain meds given this shift Lab/Rad (abnormal results): 04/18: WBC- 14.2; AM labs drawn, results pending; Abd XR 2V scheduled today (x3 days) Void/BM: Lynch draining dark-colored yellow urine with s/s of retention; No BM this shift Lines/Tubes: JOVI RLQ output was 10 ml serosanguineous Skin / Wound: Midline abd incision intact w/ maryan covered with tegaderm with scant shadow drainage noted. Discharge plan: Return home with girlfriend when medically clear. Initialized on 04/19/22 04:42 - END OF NOTE
--- NOTE | 2022-04-21 13:41 | Operative Note ---
DATE OF OPERATION: 04/12/2022 DATE OF PROCEDURE: 04/12/2022 PREOPERATIVE DIAGNOSIS: Acute diverticulitis and colovesical fistula. POSTOPERATIVE DIAGNOSIS: Acute diverticulitis and colovesical fistula. PROCEDURE: Sigmoid colectomy with excision of bladder fistula and closure. SURGEON: Uziel Ramirez MD FINDINGS: Mid sigmoid diverticulitis with dense adherence to the posterior wall of the dome of the bladder and fistula in the lower portion of the bladder posteriorly near the peritoneal reflection. DESCRIPTION OF PROCEDURE: Under general anesthesia, the patient's abdomen was prepped and draped in a sterile field. Time-out procedure was carried out as per protocol. A midline incision was made. Upon entering the peritoneal cavity, there was acute inflammation with some chronic induration of the mid sigmoid colon. There was significant normal-appearing bowel distally. There were dense adhesions to the posterior wall of the bladder, starting at the dome and extending down to immediately above the peritoneal reflection. Examination of the upper abdomen was unremarkable. The procedure was started by dissecting the chronically inflamed colon from the bladder wall, taking care to stay closer to the bladder wall, so as not to have any fecal contamination. The sigmoid segment was circumferentially dissected and the fistula was noted in the lower aspect of the bladder above the peritoneal reflection. Irrigation was carried out. There was no fecal contamination. The bowel was then divided proximal and distal to the inflamed segment using Contour staplers. The mesocolon was divided using the Voyant cautery device. The specimen was passed off. Irrigation was carried out. A [id number] anastomosis was performed since there was very redundant sigmoid. I was able to do a stapled anastomosis with a TA-55. The anastomotic staple line was oversewn with running 2-0 Prolene. The defect in the mesocolon was closed with 2-0 silk. The fistula was identified and I was able to pass a clamp into the bladder. The inflamed wall around the fistula was excised and the opening was closed in two layers using 2-0 Monocryl. There was a thinned area where I had taken the colon off of the bladder and this was reinforced using running locking 2-0 Monocryl. A flap of omentum was dissected so that it could reach the pelvis. At this point, we irrigated and then we changed gloves and instruments. Sponge, needle, and instrument counts were done and were verified as correct. The omental flap was placed between the new anastomosis in the posterior wall of the bladder. It was secured with 2 sutures of 2-0 silk. It was sewn to the peritoneum. It appeared to be stable. A #10 Brian drain was placed under this flap at the level of the closed fistula. This was brought out through a stab wound in the right lower quadrant. Nasogastric tube was positioned in the stomach. Irrigation was carried out once more. Sponge, needle, instrument, and blade counts were correct again. The fascia was closed using running locking #1 Prolene. Subcutaneous tissue was closed with 2-0 Monocryl. Skin was closed with maryan. The drain was secured with 2-0 nylon. The patient tolerated the procedure well. He was awakened and transferred to the postanesthetic care unit in satisfactory condition. LCS:reese Job ID: [id number] Doc ID: [id number] Uziel Ramirez M.D.
== END 2022-04-19 16:55 | disposition home or self-care (01) | DRG 329 ==
LOC: ED 17:39 → MEDSUR 22:26
PROVIDERS: ADMIT Family Medicine Adult Medicine; ATTEND Family Medicine Adult Medicine

== ENCOUNTER 2023-04-06 07:29 | Inpatient (IN) ==
--- NOTE | 2023-03-30 12:55 | XRay Report ---
HISTORY: Preop for excision of left shoulder mass FINDINGS: There is a linear scar in the right middle lobe. The lungs are otherwise clear normally expanded. There is no mass, infiltrate or pulmonary vascular congestion. The heart size, mediastinum and erica are normal. There is a left shoulder prosthesis. The spine has a kyphotic curvature and arthritis. There has been no significant change since 04/08/22. IMPRESSION: Normal chest. Interpreted and Authenticated by: Humberto Kinsey 03/30/23
[2023-03-30 12:56] LABS: Basophils # (Auto) 0.05 K/mcL (0.00-0.30); Basophils % (Auto) 0.6 % (0.0-2.0); Eosinophils # (Auto) 0.04 K/mcL (0.00-0.70); Eosinophils % (Auto) 0.5 % (0.0-7.0); Hematocrit 45.9 % (40.1-51.0); Hemoglobin 14.7 g/dL (13.7-17.5); Lymphocytes % (Auto) 16.2 % (15.5-49.0); Mean Platelet Volume 8.9 fL (8.8-12.5); Monocytes # (Auto) 1.01 K/mcL (0.10-0.90); Monocytes % (Auto) 11.7 % (1.0-12.0); Neutrophils % (Auto) 70.4 % (38.0-78.0); Platelet Count 254 K/mcL (140-440); Red Cell Distribution Width 16.8 % (11.5-14.5); WBC 8.6 K/mcL (4.5-11.0)
[2023-03-30 13:09] LABS: Partial Thromboplastin Time 34.7 sec (20.0-37.0); Prothrombin Time 13.2 sec (11.9-14.5)
[2023-03-30 13:24] LABS: ALT/SGPT 13 U/L (<40); AST/SGOT 20 U/L (<40); Albumin 3.8 gm/dL (3.2-5.2); Albumin/Globulin Ratio 1.2 (1.0-2.3); Alkaline Phosphatase 113 U/L (39-117); Bilirubin,Total 0.4 mg/dL (0.1-1.0); Blood Urea Nitrogen 22 mg/dL (8-23); Calcium 9.3 mg/dL (8.6-10.4); Carbon Dioxide 27 mmol/L (22-30); Chloride 100 mmol/L (96-108); Globulin 3.1 gm/dL (2.2-3.7); Glomerular Filtration Rate 79; Glucose 98 mg/dL (70-105)
--- NOTE | 2023-03-30 16:16 | EKG ---
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 Measurements Intervals [place] Rate: 71 P: 41 NM: 168 QRS: -18 QRSD: 104 T: 30 QT: 397 QTc: 431 Interpretive Statements Sinus rhythm INCOMPLETE RIGHT TAWANNA BRANCH BLOCK Electronically Signed On 03-30-2023 16:16:06 PDT by Siddhartha Kinsey M.D. /store/[email or web address]/[id number]
[~2023-04-06 07:29] MED LIST: ceFAZolin 2 GM in DEXTROSE 5% IN WATER 50 ML IV SCH
[2023-04-06] MEDS ORDERED: KETAMINE 50 MG/ML Syringe IV ONE (08:25)
[2023-04-06] MEDS ORDERED: LIDOCAINE HCL/PF 100 MG/5 ML SYRINGE IV ONE (08:25)
[2023-04-06] MEDS ORDERED: PROPOFOL 200 MG/20 ML VIAL IV ONE (08:25)
[2023-04-06] MEDS ORDERED: MAGNESIUM SULFATE 2 GM/50 ML BAG IV ONE (08:25)
[2023-04-06] MEDS ORDERED: ONDANSETRON 4 MG/2 ML VIAL ONE (08:25)
[2023-04-06] MEDS ORDERED: fentaNYL 100 MCG/2 ML VIAL IV ONE (08:25)
[2023-04-06] MEDS ORDERED: DEXAMETHASONE 10 MG/ML VIAL ONE (08:25)
[2023-04-06] MEDS ORDERED: ACETAMINOPHEN 1,000 MG/100 ML BAG IV ONE (08:58)
[2023-04-06] MEDS ORDERED: METHOCARBAMOL 1,000 MG/10 ML VIAL IV PRN (08:58)
[2023-04-06] MEDS ORDERED: MEPERIDINE 25 MG/ML VIAL IV PRN (08:58)
[2023-04-06] MEDS ORDERED: ONDANSETRON 4 MG/2 ML VIAL IV PRN ×2 (08:58→09:28)
[2023-04-06] MEDS ORDERED: NALOXONE HCL 0.4 MG/ML VIAL IV PRN (08:58)
[2023-04-06] MEDS ORDERED: LACTATED RINGERS 250 ML IV PRN (08:58)
[2023-04-06] MEDS ORDERED: PROMETHAZINE 25 MG/ML VIAL IV PRN (08:58)
[2023-04-06] MEDS ORDERED: IPRATROPIUM/ALBUTEROL 3 ML AMPUL.NEB NEB PRN (08:58)
[2023-04-06] MEDS ORDERED: diphenhydrAMINE 50 MG/ML VIAL IV PRN (08:58)
[2023-04-06] MEDS ORDERED: LACTATED RINGERS 1,000 ML IV SCH (09:00)
[2023-04-06] MEDS ORDERED: HYDROmorphone 1 MG/ML SYRINGE IV PRN ×2 (09:28→09:38)
--- NOTE | 2023-04-06 09:28 | Brief Operative Note ---
Brief Operative Note Date of procedure: 04/06/23 Pre-op diagnosis: mass of left upper shoulder;posterior Post-op diagnosis: other (infected mass of left shoulder extending down to bony scapula) Procedure: excision of infected mass of left upper shoulder [id number] Grafts/Implants: No Anesthesia: MAC Findings: indurated inflam ed mass of posterior shoulder over tip of scapula with large volume of bloody pus extending down to flory surface ;unable to determine if bone was involved Complications: none Surgeon: Uziel Ramirez Estimated blood loss (cc): 15 Specimens Removed/Pathology: other (soft tissue mass;culture of drainage ) Condition: stable Disposition: PACU
[2023-04-06] MEDS: fentaNYL 100 MCG/2 ML VIAL IV PRN ×3 (10:04→10:12)
[2023-04-06] MEDS: 0.9 % SODIUM CHLORIDE 1,000 ML IV SCH ×2 (10:21→21:34)
[2023-04-06] MEDS: PIPERACILLIN SODIUM/TAZOBACTAM 3.375 GM in DEXTROSE 5% IN WATER 50 ML IV SCH ×3 (11:55→23:32)
[2023-04-06] MEDS: 0.9 % SODIUM CHLORIDE 10 ML SYRINGE IV SCH ×2 (14:59→21:35)
[2023-04-06] MEDS ORDERED: POTASSIUM PHOSPHATE 40 MEQ in DEXTROSE 5% IN WATER 500 ML IV ONE (16:48)
[2023-04-06] MEDS: DOCUSATE SODIUM 100 MG CAPSULE PO SCH (21:34)
[2023-04-06] MEDS: traZODone HCL 100 MG TABLET PO SCH (21:34)
[2023-04-06] MEDS: TAMSULOSIN 0.4 MG CAPSULE PO SCH (21:34)
[2023-04-06] MEDS: SENNOSIDES 1 TABLET PO SCH (21:34)
[2023-04-07] MEDS: PIPERACILLIN SODIUM/TAZOBACTAM 3.375 GM in DEXTROSE 5% IN WATER 50 ML IV SCH ×3 (05:38→17:51)
[2023-04-07] MEDS: 0.9 % SODIUM CHLORIDE 10 ML SYRINGE IV SCH ×2 (05:38→16:07)
[2023-04-07] MEDS: OMEPRAZOLE 20 MG CAPSULE PO SCH (07:39)
[2023-04-07] MEDS: 0.9 % SODIUM CHLORIDE 1,000 ML IV SCH ×3 (08:54→20:38)
[2023-04-07] MEDS: POLYETHYLENE GLYCOL 3350 17 GM PACKET PO SCH ×3 (09:14→21:45)
[2023-04-07] MEDS: LEVOTHYROXINE 50 MCG TABLET PO SCH (09:15)
[2023-04-07] MEDS: DOCUSATE SODIUM 100 MG CAPSULE PO SCH ×2 (09:15→21:45)
[2023-04-07] MEDS: ALLOPURINOL 300 MG TABLET PO SCH (09:15)
--- NOTE | 2023-04-07 12:35 | General Surgery Progress Note ---
SUBJECTIVE Subjective Patient information: Note initiated : 04/07/23 at 12:34 pm Service Date, if different from initiated Date: [] Patient: Jason Lewis 63 y/o M admitted on 04/06/23. Chief Complaint: [] Principal diagnosis: Left shoulder abscess Interval history: Patient is clinically stable. He is having moderate amount of pain in the operative site. He has some purulent drainage. Cultures are pending. Gram stain reportedly did not show any organisms. Pertinent ROS: Complaining of constipation Constitutional Vitals: Vital Signs Temp Pulse Resp BP Pulse Ox O2 Del Method O2 Flow Rate 97.7 F 84 17 116/86 97 CPAP 6 04/07/23 04:19 04/07/23 04:19 04/07/23 04:19 04/07/23 04:19 04/07/23 04:19 04/07/23 04:19 04/06/23 10:07 Period Temp Pulse Resp BP Sys/Rios Pulse Ox O2 Del Method O2 Flow Rate Last 24 Hr 97.7 F-98.2 F 84-90 17-20 115-140/76-89 94-97 CPAP-Room Air Intake and Output 04/07/23 04/07/23 04/07/23 03:59 11:59 19:59 Intake Total 1050 1750 Output Total 1350 400 Balance -300 1350 Weight 204 lb 9.6 oz Intake & Output: Intake & Output 04/07/23 04/07/23 04/07/23 03:59 11:59 19:59 Intake Total 1050 1750 Output Total 1350 400 Balance -300 1350 Weight 204 lb 9.6 oz Intake: IV 1050 1050 Sodium Chloride 0.9% 1,000 ml @ 1000 1000 100 mls/hr IV .Q10H JESÚS Rx#: [id number] Zosyn 3.375 gm In Dextrose 5% 50 50 in Water 50 ml @ 100 mls/hr IV Q6H JESÚS Rx#:[id number] Oral 700 Output: Void Amount 1350 400 Other: Meal Breakfast Percent of Meal Consumed 100% Urine Appearance Clear Clear Urine Color Yellow Yellow Urine Odor Normal Normal Neck Neck exam: Present normal inspection; Absent lymphadenopathy Respiratory Respiratory exam: Present normal respiratory exam and CTAB Cardiovascular Cardiovascular exam: Present normal rate and rhythm, +S1 and +S2 GI/Abdominal GI/Abdominal exam: Present normal bowel sounds and soft; Absent distended Extremities Exam Additional comments: Operative site left shoulder is clean. There is a moderate amount of drainage but that is related to the Exufiber silver dressing. A/P Assessment and plan (1) Abscess of left shoulder: Status: Acute (2) Sleep apnea, obstructive: Status: Chronic Plan Continue IV antibiotics Follow-up cultures MiraLAX 3 times daily CBC and IP tomorrow Time Spent With Patient Time: Total time spent is greater than 50% in coordination of care (as documented) at patient's floor/unit and/or counseling patient:
[2023-04-07] MEDS: traZODone HCL 100 MG TABLET PO SCH (21:45)
[2023-04-07] MEDS: SENNOSIDES 1 TABLET PO SCH (21:45)
[2023-04-07] MEDS: TAMSULOSIN 0.4 MG CAPSULE PO SCH (21:45)
[2023-04-08] MEDS: 0.9 % SODIUM CHLORIDE 10 ML SYRINGE IV SCH ×4 (00:10→20:51)
[2023-04-08] MEDS: PIPERACILLIN SODIUM/TAZOBACTAM 3.375 GM in DEXTROSE 5% IN WATER 50 ML IV SCH ×4 (00:26→17:04)
[2023-04-08] MEDS: 0.9 % SODIUM CHLORIDE 1,000 ML IV SCH ×3 (02:27→18:06)
[2023-04-08 06:46] LABS: Basophils # (Auto) 0.06 K/mcL (0.00-0.30); Basophils % (Auto) 0.6 % (0.0-2.0); Eosinophils # (Auto) 0.03 K/mcL (0.00-0.70); Eosinophils % (Auto) 0.3 % (0.0-7.0); Hematocrit 41.6 % (40.1-51.0); Hemoglobin 13.1 g/dL (13.7-17.5); Lymphocytes # (Auto) 1.97 K/mcL (1.50-4.80); Lymphocytes % (Auto) 18.1 % (15.5-49.0); Mean Cell Volume 86.1 fL (80.0-100.0); Mean Corpuscular HGB Conc 31.5 g/dL (31.0-36.0); Mean Platelet Volume 8.9 fL (8.8-12.5); Monocytes # (Auto) 1.22 K/mcL (0.10-0.90); Monocytes % (Auto) 11.2 % (1.0-12.0); Neutrophils % (Auto) 69.1 % (38.0-78.0); Platelet Count 222 K/mcL (140-440); RBC 4.83 M/mcL (4.63-6.08); Red Cell Distribution Width 16.7 % (11.5-14.5); WBC 10.9 K/mcL (4.5-11.0)
[2023-04-08 07:16] LABS: ALT/SGPT 7 U/L (<40); AST/SGOT 13 U/L (<40); Albumin 3.3 gm/dL (3.2-5.2); Albumin/Globulin Ratio 1.2 (1.0-2.3); Alkaline Phosphatase 91 U/L (39-117); Bilirubin,Direct < 0.2 mg/dL (0-0.3); Bilirubin,Total 0.3 mg/dL (0.1-1.0); Blood Urea Nitrogen 18 mg/dL (8-23); Calcium 8.7 mg/dL (8.6-10.4); Carbon Dioxide 24 mmol/L (22-30); Chloride 105 mmol/L (96-108); Globulin 2.7 gm/dL (2.2-3.7); Glomerular Filtration Rate 70; Glucose 92 mg/dL (70-105); Lactate Dehydrogenase 120 U/L (135-225); Phosphorous 3.4 mg/dL (2.5-4.5); Triglycerides 120 mg/dL (<150); Uric Acid 2.7 mg/dL (2.5-8.0)
[2023-04-08] MEDS: OMEPRAZOLE 20 MG CAPSULE PO SCH (08:29)
[2023-04-08] MEDS: ALLOPURINOL 300 MG TABLET PO SCH (09:21)
[2023-04-08] MEDS: LEVOTHYROXINE 50 MCG TABLET PO SCH (09:21)
[2023-04-08] MEDS: POLYETHYLENE GLYCOL 3350 17 GM PACKET PO SCH ×4 (09:22→20:53)
[2023-04-08] MEDS: DOCUSATE SODIUM 100 MG CAPSULE PO SCH ×2 (09:22→20:52)
[2023-04-08] MEDS: oxyCODONE IR 5 MG TABLET PO PRN ×3 (11:12→20:51)
[2023-04-08] MEDS ORDERED: CYCLOBENZAPRINE 10 MG TABLET PO PRN (12:39)
--- NOTE | 2023-04-08 12:42 | General Surgery Progress Note ---
SUBJECTIVE Subjective Patient information: Note initiated : 04/08/23 at 12:40 pm Service Date, if different from initiated Date: [] Patient: Jason Lewis 63 y/o M admitted on 04/06/23. Chief Complaint: [] Principal diagnosis: Left shoulder abscess Interval history: patient is stable. He has minimal pain in his left posterior shoulder. He does complain of lower back pain. There is moderate drainage from his incision. Constitutional Vitals: Vital Signs Temp Pulse Resp BP Pulse Ox O2 Del Method O2 Flow Rate 97.9 F 64 14 140/70 100 Room Air 6 04/08/23 08:00 04/08/23 08:00 04/08/23 08:00 04/08/23 08:00 04/08/23 08:00 04/08/23 08:00 04/06/23 10:07 Period Temp Pulse Resp BP Sys/Rios Pulse Ox O2 Del Method O2 Flow Rate Last 24 Hr 97.1 F-98.7 F 64-85 14-18 98-140/58-89 93-100 CPAP-Room Air, CPAP Intake and Output 04/08/23 04/08/23 04/08/23 03:59 11:59 19:59 Intake Total 50 1850 Output Total 550 900 Balance -500 950 Weight 209 lb Intake & Output: Intake & Output 04/08/23 04/08/23 04/08/23 03:59 11:59 19:59 Intake Total 50 1850 Output Total 550 900 Balance -500 950 Weight 209 lb Intake: IV 50 1050 Sodium Chloride 0.9% 1,000 ml @ 1000 100 mls/hr IV .Q10H JESÚS Rx#: [id number] Zosyn 3.375 gm In Dextrose 5% 50 50 in Water 50 ml @ 100 mls/hr IV Q6H JESÚS Rx#:[id number] Oral 800 Output: Void Amount 550 900 Other: Urine Appearance Clear Clear Urine Color Yellow Yellow Urine Odor Normal Normal Stool Size Moderate Stool Color Brown Stool Consistency Soft Formed # Bowel Movements 1 Neck Neck exam: Present normal inspection; Absent lymphadenopathy Respiratory Respiratory exam: Present normal respiratory exam and CTAB Cardiovascular Cardiovascular exam: Present normal rate and rhythm, +S1 and +S2 GI/Abdominal GI/Abdominal exam: Present normal bowel sounds and soft; Absent distended Extremities Exam Additional comments: Operative site left shoulder is clean. There is a moderate amount of drainage but that is related to the Exufiber silver dressing. A/P Assessment and plan (1) Abscess of left shoulder: Status: Acute (2) Sleep apnea, obstructive: Status: Chronic Plan Cyclobenzaprine 10 mg 3 times daily Daily dressing changes Time Spent With Patient Time: Total time spent is greater than 50% in coordination of care (as documented) at patient's floor/unit and/or counseling patient:
[2023-04-08] MEDS: traZODone HCL 100 MG TABLET PO SCH (20:51)
[2023-04-08] MEDS: TAMSULOSIN 0.4 MG CAPSULE PO SCH (20:51)
[2023-04-08] MEDS: SENNOSIDES 1 TABLET PO SCH (20:52)
[2023-04-09] MEDS: PIPERACILLIN SODIUM/TAZOBACTAM 3.375 GM in DEXTROSE 5% IN WATER 50 ML IV SCH ×3 (00:24→11:29)
[2023-04-09] MEDS: 0.9 % SODIUM CHLORIDE 10 ML SYRINGE IV SCH ×2 (05:15→14:30)
[2023-04-09] MEDS: OMEPRAZOLE 20 MG CAPSULE PO SCH (06:50)
[2023-04-09] MEDS: LEVOTHYROXINE 50 MCG TABLET PO SCH (08:48)
[2023-04-09] MEDS: ALLOPURINOL 300 MG TABLET PO SCH (08:49)
[2023-04-09] MEDS: POLYETHYLENE GLYCOL 3350 17 GM PACKET PO SCH ×2 (08:50)
[2023-04-09] MEDS: DOCUSATE SODIUM 100 MG CAPSULE PO SCH (08:50)
--- NOTE | 2023-04-09 14:05 | Cat Scan Report ---
History: Immediate postop after surgical drainage of an abscess posterior to the left shoulder, prior left shoulder replacement in 2020 TECHNIQUE: Following injection of intravenous nonionic contrast the patient was imaged during the venous phase from the level of the angle of mandible to the mid humerus. Oblique coronal and oblique sagittal reformats were created. The radiation exposure was limited using dose reduction technology. FINDINGS: There is a complex abscess cavity which had been drained posterior to the lateral body of the scapula. There are multiple bubbles of air within the collection. This collection measures roughly 5.5 cm in greatest length and 2.2 x 4.1 cm in transverse dimension. This is contiguous with the infraspinatus muscle. There is loss of the fat plane the surgically drained abscess from the muscle. No obvious abscess is seen within the muscle itself. No fistula tract is identified. The adjacent bone is normal without evidence of osteomyelitis. There is a well-positioned reverse shoulder prosthesis. There is no reabsorption of bone around the hardware. There is arthritis and spurs at the acromioclavicular joint. Patient has mild emphysema in both upper lobes. No lung mass is detected. There are no abnormally enlarged lymph nodes in the axilla or mediastinum. There are surgical clips adjacent to the left lobe of the thyroid. No thyroid mass is seen. IMPRESSION: Cellulitis surrounding a surgically drained abscess posterior to the shoulder with inflammation extending to the infraspinatus muscle. No evidence of a septic joint or osteomyelitis. No fistula tract is identified. Interpreted and Authenticated by: Humberto Kinsey 04/09/23
--- NOTE | 2023-04-09 16:02 | Discharge Summary ---
Discharge Provider Provider IMPORTANT FOLLOW-UP INFORMATION FOR PCP: Patient information: Note initiated : 04/09/23 at 4:00 pm Service Date, if different from initiated Date: [] Patient: Jason Lewis 63 y/o M admitted on 04/06/23. Chief Complaint: [] Date of admission: 04/06/23 09:30 Discharge date: 04/09/23 Primary care physician: Lemuel Larkin MD Admitting clinician: Uziel Ramirez Attending physician on admission: Uziel Ramirez Attending physician on discharge: Uziel Ramirez Discharging clinician: Uziel Ramirez COURSE Hospital Course Hospital course: 63-year-old male with history of increasing Painful mass over the lateral aspect of his left posterior shoulder. This has been symptomatic for at least 6 months. Patient has a history of reverse shoulder arthroplasty in 2020. It appeared to be an inflamed nodule or fibrolipoma. Excision was carried and it was identified as a deep inflammatory fibrofatty nodule with purulence extending down to the infraspinatus muscle. There was extensive gelatinous necrotic tissue encountered. This was cultured but growth has been negative. Probing in the area where the muscle was split revealed that the Q-tip extended anteriorly in the deep tissues so probing was not continued. Vigorous debridement of all of the infected tissue was removed and the patient has been treated with IV anti biotics and every other day dressing changes. A follow-up CT reportedly does not show any extension of the inflammatory process to the joint space however this cannot be said with certainty. I discussed the situation with Dr. Riggins and it is his impression that he can be treated as an outpatient with follow-up by Dr. Degroot who performed the surgery. Patient is clinically stable at this time. Aerobic and anaerobic cultures were negative. He is discharged home and will have follow-up in the office with plans for follow-up by Dr. Degroot within 1 week. Discharge diagnosis: Infected lesion left posterior shoulder with clinically a tract Secondary discharge diagnosis: History of labs shoulder reverse prosthesis Reason for admission: Infected nodule left shoulder possibly associated with a left shoulder pros Procedures: Excisional debridement and drainage of abscess left shoulder posteriorly Pertinent studies/significant findings: CT of the left shoulder with contrast Complications: None Time Spent with Patient Time attestation: Total time spent providing and/or coordinating discharge services: Time spent: Less than 30 minutes Physical Examination Vital Signs Vital signs: Temp Pulse Resp BP Pulse Ox O2 Del Method O2 Flow Rate 98.2 F 80 16 143/84 98 Room Air 6 04/09/23 12:00 04/09/23 12:00 04/09/23 12:00 04/09/23 12:00 04/09/23 12:00 04/09/23 12:00 04/06/23 10:07 General physical appearance General physical exam: well developed, well nourished, no distress and no pain Eyes Eye exam: PERRL and normal ocular movement ENT ENT exam: normal nares, no hearing loss and no congestion Head Head exam IM: Present atraumatic, normal inspection and normocephalic Neck Neck exam: no masses, no bruits, trachea midline, no lymphadenopathy and no venous distension Cardiovascular Cardiovascular exam IM: Present normal rate and rhythm, RRR, +S1 and +S2; Absent JVD or tachycardia Respiratory Respiratory exam: normal expansion, normal respiratory effort and clear to auscultation Abdomen Abdomen: Present soft, bowel sounds and surgical scars Integumentary Integumentary: Present no rash, no growths, no abnormal pigmentation and other ( ) Neurologic Neurologic: Present normal coordination and normal sensation Musculoskeletal Musculoskeletal: Present normal gait, normal posture and other (Abscess left posterior shoulder extending to infraspinatus muscle and possibly left shoulder prosthesis with) Psychiatric Psychiatric: Present oriented to time, oriented to person, oriented to place, speech is normal and memory intact Discharge Plan Patient/Caregiver Discharge Instructions Activity: increase activity as tolerated Diet: Regular Diet Prescriptions: New amoxicillin-pot clavulanate [Augmentin] 500-125 mg tablet 1 tab PO Q8H MDD Patient Qty: 30 0RF oxycodone-acetaminophen [Endocet] 10-325 mg tablet 1 tab PO Q4H PRN (Reason: Pain) Qty: 30 0RF Continued (DME) CPAP unit and supplies Qty: 1 0RF Rx Instructions: As directed lansoprazole 30 mg capsule,delayed release(DR/EC) 30 mg PO QDAY Qty: 90 1RF allopurinol 300 mg tablet 300 mg PO QAM Qty: 30 6RF levothyroxine [Synthroid] 50 mcg tablet 50 mcg PO QAM Qty: 90 1RF doxycycline hyclate 100 mg tablet 100 mg PO QAM Qty: 30 3RF omega-3 acid ethyl esters 1 gram capsule 2 cap PO BID Qty: 360 0RF bupropion HCl 150 mg tablet extended release 24 hr 150 mg PO QAM Qty: 90 1RF hydrochlorothiazide 25 mg tablet 25 mg PO QAM Qty: 90 1RF meloxicam 15 mg tablet 15 mg PO QAM Qty: 90 1RF Rx Instructions: take with food trazodone 100 mg tablet 100 mg PO QHS Qty: 90 1RF tamsulosin [Flomax] 0.4 mg capsule 0.4 mg PO QHS Qty: 90 4RF lecithin 518 mg capsule 1,200 mg PO QDAY Cristofer Multivitamin For Men 200-175-250 mcg Tablet 1 tab PO QAM lubiprostone [Amitiza] 24 mcg capsule 24 mcg PO HS polyethylene glycol 3350 [Miralax] 17 gram/dose powder 17 g PO QDAY tadalafil [Cialis] 20 mg tablet 20 mg PO QDAY PRN (Reason: sexual activity) Qty: 14 8RF Rx Instructions: administer approximately 30min before sexual activity; do not use more than 1 dose per 24hrs Follow Up Plan Follow up with: Uziel Ramirez MD [Physician] - 04/12/23 1:30 pm Patient Disposition: Home, Self-Care Rehab Potential: Good I certify that the patient requires SNF services: No Overall status at discharge: patient is progressing back to baseline Pending Pending Pending: Resuscitation Status Resuscitate (Full Code) Diet Regular Diet Start SunApr 06 944 Allopurinol (Allopurinol 300 Mg Tablet) 300 mg PO QAM [facility] Last Admin: 04/09/23 08:49 Dose: 300 mg Documented By: Admin: 04/08/23 09:21 Dose: 300 mg Documented By: Admin: 04/07/23 09:15 Dose: 300 mg Documented By: [email or web address] Cyclobenzaprine HCl (Cyclobenzaprine 10 Mg Tablet) 10 mg PO TIDP PRN PRN Reason: Muscle Spasm Last Admin: 04/08/23 13:10 Dose: 10 mg Documented By: TEJINDER Docusate Sodium (Docusate Sodium 100 Mg Capsule) 100 mg PO BID [facility] Last Admin: 04/09/23 08:50 Dose: Not Given Documented By: Admin: 04/08/23 20:52 Dose: 100 mg Documented By: Admin: 04/08/23 09:22 Dose: 100 mg Documented By: Admin: 04/07/23 21:45 Dose: 100 mg Documented By: Admin: 04/07/23 09:15 Dose: 100 mg Documented By: [email or web address] Admin: 04/06/23 21:34 Dose: 100 mg Documented By: COSME Piperacillin Sod/Tazobactam (Sod 3.375 gm/ Dextrose) 50 mls @ 100 mls/hr IV Q6H JESÚS; Protocol Last Infusion: 04/09/23 13:00 Dose: 0 mls/hr Documented By: Admin: 04/09/23 11:29 Dose: 100 mls/hr Documented By: Infusion: 04/09/23 05:44 Dose: 0 mls/hr Documented By: Admin: 04/09/23 05:14 Dose: 100 mls/hr Documented By: Infusion: 04/09/23 00:54 Dose: 0 mls/hr Documented By: Admin: 04/09/23 00:24 Dose: 100 mls/hr Documented By: Infusion: 04/08/23 18:05 Dose: 0 mls/hr Documented By: Admin: 04/08/23 17:04 Dose: 100 mls/hr Documented By: Infusion: 04/08/23 13:30 Dose: 0 mls/hr Documented By: Admin: 04/08/23 12:48 Dose: 100 mls/hr Documented By: Infusion: 04/08/23 06:22 Dose: 0 mls/hr Documented By: Admin: 04/08/23 05:52 Dose: 100 mls/hr Documented By: Infusion: 04/08/23 00:56 Dose: 0 mls/hr Documented By: Admin: 04/08/23 00:26 Dose: 100 mls/hr Documented By: Infusion: 04/07/23 18:21 Dose: 0 mls/hr Documented By: Admin: 04/07/23 17:51 Dose: 100 mls/hr Documented By: Infusion: 04/07/23 12:27 Dose: 100 mls/hr Documented By: Admin: 04/07/23 11:57 Dose: 100 mls/hr Documented By: Infusion: 04/07/23 06:08 Dose: 100 mls/hr Documented By: Admin: 04/07/23 05:38 Dose: 100 mls/hr Documented By: Infusion: 04/07/23 00:02 Dose: 0 mls/hr Documented By: Admin: 04/06/23 23:32 Dose: 100 mls/hr Documented By: Infusion: 04/06/23 18:00 Dose: 0 mls/hr Documented By: Admin: 04/06/23 17:16 Dose: 100 mls/hr Documented By: Infusion: 04/06/23 12:27 Dose: 0 mls/hr Documented By: Admin: 04/06/23 11:55 Dose: 100 mls/hr Documented By: HEIDI Levothyroxine Sodium (Levothyroxine 50 Mcg Tablet) 50 mcg PO QAM [facility] Last Admin: 04/09/23 08:48 Dose: 50 mcg Documented By: Admin: 04/08/23 09:21 Dose: 50 mcg Documented By: Admin: 04/07/23 09:15 Dose: 50 mcg Documented By: [email or web address] Omeprazole (Omeprazole 20 Mg Capsule) 20 mg PO ACB [facility] Last Admin: 04/09/23 06:50 Dose: 20 mg Documented By: Admin: 04/08/23 08:29 Dose: 20 mg Documented By: Admin: 04/07/23 07:39 Dose: 20 mg Documented By: TEJINDER Oxycodone HCl (Oxycodone Ir 5 Mg Tablet) 10 mg PO Q4HP PRN; Protocol PRN Reason: Per Pain Protocol Last Admin: 04/08/23 20:51 Dose: 10 mg Documented By: Admin: 04/08/23 15:57 Dose: 10 mg Documented By: Admin: 04/08/23 11:12 Dose: 10 mg Documented By: TEJINDER Polyethylene Glycol (Polyethylene Glycol 3350 17 Gm Packet) 17 gm PO QDAY [facility] Last Admin: 04/09/23 08:50 Dose: Not Given Documented By: Admin: 04/08/23 09:22 Dose: Not Given Documented By: Admin: 04/07/23 09:14 Dose: 17 gm Documented By: [email or web address] Polyethylene Glycol (Polyethylene Glycol 3350 17 Gm Packet) 17 gm PO TID [facility] Admin: 04/09/23 08:50 Dose: Not Given Documented By: Admin: 04/08/23 20:53 Dose: Not Given Documented By: Admin: 04/08/23 15:51 Dose: 17 gm Documented By: Admin: 04/08/23 09:22 Dose: 17 gm Documented By: Admin: 04/07/23 21:45 Dose: 17 gm Documented By: Admin: 04/07/23 14:53 Dose: 17 gm Documented By: TEJINDER Senna (Sennosides 1 Tablet) 2 tab PO HS [facility] Admin: 04/08/23 20:52 Dose: 2 tab Documented By: Admin: 04/07/23 21:45 Dose: 2 tab Documented By: Admin: 04/06/23 21:34 Dose: 2 tab Documented By: COSME Sodium Chloride (0.9 % Sodium Chloride 10 Ml Syringe) 10 ml IV Q8 [facility] Last Admin: 04/09/23 14:30 Dose: 10 ml Documented By: Admin: 04/09/23 05:15 Dose: 10 ml Documented By: Admin: 04/08/23 20:51 Dose: 10 ml Documented By: Admin: 04/08/23 12:49 Dose: Not Given Documented By: Admin: 04/08/23 06:07 Dose: Not Given Documented By: Admin: 04/08/23 00:10 Dose: Not Given Documented By: Admin: 04/07/23 16:07 Dose: 10 ml Documented By: Admin: 04/07/23 05:38 Dose: Not Given Documented By: Admin: 04/06/23 21:35 Dose: Not Given Documented By: Admin: 04/06/23 14:59 Dose: Not Given Documented By: CAROLEE Tamsulosin HCl (Tamsulosin 0.4 Mg Capsule) 0.4 mg PO QHS [facility] Last Admin: 04/08/23 20:51 Dose: 0.4 mg Documented By: Admin: 04/07/23 21:45 Dose: 0.4 mg Documented By: Admin: 04/06/23 21:34 Dose: 0.4 mg Documented By: COSME Trazodone HCl (Trazodone Hcl 100 Mg Tablet) 100 mg PO QHS [facility] Last Admin: 04/08/23 20:51 Dose: 100 mg Documented By: Admin: 04/07/23 21:45 Dose: 100 mg Documented By: Admin: 04/06/23 21:34 Dose: 100 mg Documented By: COSME Shift Summary 04/08/23 03:14 Shift Summary by Teodora Carter Primary Diagnosis: Infected Mass of Left Scapula Registration Status: IP Date of Surgery (if applicable): 04/06/23 Pertinent Medical Dx/Issue(s): HTN, BPH, IBS, GERD, Depression, Gout, Chronic back pain, EDISON Med management (antibiotics, diuretics, BP): Zosyn Skin/Wound Care: WNL, Dressing on left posterior shoulder is Mepilex bordered, circled drainage. Left index finger partial amputation done years ago. Vital Signs with Trends: VSS O2, liter flow/saturations: RA . Pt uses CPAP at night and it's at bedside. Pain management (acute vs. chronic): Reported dull ache on shoulder 2/10, pt is reluctant to take pain medication, pt states " pain medication will worsen my constipation". Pt educated on the importance of reporting pain and the availability of scheduled regiment to help reduce constipation. Lab/Rad (abnormals, trends): Neuro/Mental Status: A&O x4 Cardiac Rhythm, Alarm Settings: N/A Urinary Elimination Device: Urinal Urinary output greater than 30mL/hr? Yes Date of last BM: 04/04/23 Lines/Tubes: RFA NS @ 100 Activity: SBA, pt ambulated in the hallway x1, and several times in the room. Recommendations/questions for MD: Discharge Plan (needs, disposition, etc): TBD Initialized on 04/08/23 03:14 - END OF NOTE
--- NOTE | 2023-04-11 12:15 | Operative Note ---
DATE OF OPERATION: 04/06/2023 PREOPERATIVE DIAGNOSIS: Mass of posterior left upper shoulder. POSTOPERATIVE DIAGNOSIS: Infected mass of left upper shoulder, extending down to the bony scapula and laterally. PROCEDURE: Excision of infected mass of left upper shoulder 6 x 5 x 2 cm. SURGEON: Uziel Ramirez M.D. FINDINGS: Indurated and inflamed mass of posterior shoulder over the tip of the scapula with a large volume of bloody pus extending down to the bony surface, but with a tract extending past the bony surface toward the joint space. SPECIMEN: Culture of the drainage and soft tissue mass. DESCRIPTION OF PROCEDURE: Under general anesthesia, the patient was placed in modified right lateral decubitus position. A timeout procedure was carried out as per protocol. Transverse incision was made over the mass and extended into the subcutaneous tissue. The superficial fat was normal, but became more indurated as I approached the deep tissue. In the deep tissue, an infected, partially-necrotic cavity was encountered with drainage of a moderate amount of pus. Cultures were taken. The infected tissue was excised down to the infraspinatus muscle. The muscle appeared to be split. 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 A sterile Q-tip was used as a probe and the Q-tip extended past the lateral margin of the scapula and appeared to go more anteriorly. I did not force it to get into the space. All infected tissue was removed. It was quite apparent that the area could not be closed. Irrigation was carried out and the open wound was packed with Exufiber gauze impregnated with silver. This was covered with 4 x 4 gauze and tape. The patient tolerated the procedure well. He was awakened and transferred to the postanesthetic care unit in satisfactory condition. LCS:louis Job ID: [id number] Doc ID: [id number] Uziel Ramirez M.D.
== END 2023-04-09 16:10 | disposition home or self-care (01) | DRG 572 ==
LOC: SUR 07:29 → MEDSUR 09:30
PROVIDERS: ADMIT Family Medicine Adult Medicine; ATTEND Family Medicine Adult Medicine